=== PATIENT | female | born 1950 | race Caucasian/White ===

== ENCOUNTER → 2016-07-01 | Outpatient (CLI) | payer MEDICARE, BC ==
[~2016-07-01] MED LIST: CELE200C PO; CHOL2000 PO; GABA300C PO; OXYC-281 PO; PANT40TA4 PO; RIVA10TA PO
--- NOTE | 2016-07-01 15:59 | PN ---
Date/Time of Note Date/Time of Note DATE: 07/01/16 TIME: 15:48 Outpatient Progress Note Chief Complaint Status post bilateral knee replacement on 07/12/2015. HPI 65-year-old female presents today for follow-up status post bilateral knee replacement on 07/12/2015. Patient continues to do well but states that the left has improved more than the right. Patient continues to experience some discomfort on the right as well as increased crepitus style sound. Denies any falls. Denies any weakness in the left leg but experiences some weakness on the right, mainly with descending stairs. Patient is active in regards to stationary bicycle and elliptical machine in the gym. Patient is walking independently. Patient is also had physical therapy which has improved function. No radiating symptoms down the leg. Denies any falls. Denies any complaints to the left knee. Takes fdel-evg-ateprlg anti-inflammatories as needed. Patient also has complaints of right hip pain local to the groin. Patient has had previous greater trochanteric bursitis and states that this pain is more to the groin as opposed to the lateral hip. Groin pain does not limit function but has been present over the past couple of months. Review of Systems Const: No Fever, no chills, no Fatigue, normal appetite, no diaphoresis. Resp: No SOB, no wheezing, no chest pain. CV: No chest pain, no palpitaions, no SANTANA. Physical Exam Blood pressure is 133/77, temperature is 98.8, pulse of 85, respiratory rate is 13, height is 5 feet, weight is 180 pounds. General Appearance: well-developed, well-nourished, in no acute distress. Morbidly obese. Right knee: Well-healed surgical scarring. With light palpation over the anterior knee and with flexion there is noted crepitus. Patient is able to fully extend the knee and flexion up to 115. No pain with range of motion. Mild tenderness to palpation directly over the patella region. 5/5 strength on resistance. Left knee: Well-healed surgical scarring over the left knee. Normal sensory examination to light touch. Patient is able to fully extend the left knee and actively flex up to 125-130. No pain with range of motion. No tenderness to palpation. 5/5 strength on resistance. Normal flexion and extension of the right hip. No tenderness to palpation over the greater trochanteric region. When patient flexes at the hip she does have discomfort local to the groin. Imaging X-ray of the bilateral knees performed on 07/01/2016 showing all components appearing well aligned, attached and integrated to the bone. No signs of any lucency between metal and bone. X-ray of the pelvis on 07/01/2016 showing mild osteoarthritic changes at the right hip. Preserved joint space. No signs of any acute injury to the bilateral hip. Allergies Coded Allergies: hydrocodone (Verified Allergy, Severe, RASH, 09/06/15) Family Hx Patient History: Cardiac disorder 33 FATHER FHx: lung cancer 32 MOTHER Assessment/Plan * Continue with therapy such as stationary bicycle and elliptical. Aqua therapy also recommended. * Anti-inflammatories as needed for pain complaints. Ice modalities also recommended. Continued at home therapy with range of motion as well as scarring may continue to improve. Patient was made aware by Dr. Bowie at the time of surgery one year ago that it may take an extended amount of time in regards to rehabilitation as she did perform bilateral knee replacement. * Six-month extension for handicap placard provided today. * Follow-up as needed to the bilateral knees. Patient made aware that if right hip pain continues to follow up in the next couple of weeks with Dr. Bowie as possible injection to the hip may be recommended versus alternative therapy. Medications Home Meds Reported Medications Celecoxib* (Celebrex*) 200 Mg Capsule, 200 MG PO BID, CAP 09/06/15 Rivaroxaban* (Xarelto*) 10 Mg Tablet, 10 MG PO DAILY, TAB 09/06/15 Gabapentin* (Neurontin*) 300 Mg Capsule, 300 MG PO BID, #60 CAP 09/06/15 Oxycodone Hcl-Acetaminophen* (Percocet*) 5-325 Mg Tablet, 1 TAB PO Q4H Y for PAIN, TAB 09/06/15 Pantoprazole (Protonix) 40 Mg Tabec, 40 MG PO DAILY, TAB 02/28/15 Cholecalciferol* (Vitamin D3*) 2,000 Unit Cap, 2000 UNIT PO DAILY, CAP 02/28/15 PATRICK TIJERINA PA-C July 01, 2016 15:59
--- NOTE | 2016-07-01 16:00 | RADRPT ---
PROCEDURE: XR Knees. CLINICAL INDICATION: Bilateral knee pain. TECHNIQUE: Total of six views. Frontal, oblique, and lateral views of both knees. COMPARISON: 11/27/2015. FINDINGS: There are bilateral total constrained knee arthroplasties. These appears satisfactory with no fract ure, dislocation, or loosening. There is no joint effusion. The soft tissues are unremarkable. Th ere is no lytic lesion. There is diffuse osteopenia. IMPRESSION: 1. Satisfactory postoperative appearance of both knees. 2. Diffuse osteopenia. RPTAT: QQ .Sanket Lai MD, MD Date Time Electronically viewed and signed by .Sanket Lai MD, MD on 07/01/2016 16:00 .R/
--- NOTE | 2016-07-01 16:01 | RADRPT ---
PROCEDURE: XR Right hip and pelvis. CLINICAL INDICATION: Right hip pain. Pelvic pain. TECHNIQUE: Two views. Frontal pelvis and lateral right hip. COMPARISON: 02/27/2015. FINDINGS: There is no fracture or dislocation. The soft tissues are normal. There is diffuse osteopenia. There are mild degenerative changes with osteophytes noted arising from both hip joint margins. The articular surfaces are intact There is no lytic or blastic lesion. The upper pelvis is not completely included on the image. IMPRESSION: 1. Diffuse osteopenia. 2. Mild degenerative changes of both hips. RPTAT: QQ .Sanket Lai MD, MD Date Time Electronically viewed and signed by .Sanket Lai MD, on 07/01/2016 16:01 .R/
== END | disposition home or self-care (01) ==
LOC: HKI 13:40
DX: Z47.89 Encounter for other orthopedic aftercare (principal); Z96.653 Presence of artificial knee joint, bilateral
CPT/HCPCS: 73502

== ENCOUNTER → 2016-11-27 | Outpatient (CLI) | payer MEDICARE, BC ==
--- NOTE | 2016-11-27 17:11 | RADRPT ---
PROCEDURE: XR Knees. CLINICAL INDICATION: Bilateral knee pain. TECHNIQUE: Total of six views. Frontal, oblique, and lateral views of both knees. COMPARISON: 07/01/2016. FINDINGS: There is no fracture or dislocation. There is a small right knee joint effusion. There is no left knee joint effusion. There are bilateral total knee constrained arthroplasties. These appear satisfactory. There is diffuse osteopenia. There is no lytic or blastic lesion. IMPRESSION: 1. Satisfactory postoperative appearance of both knees. 2. Small right knee joint effusion. 3. Diffuse osteopenia. RPTAT: QQ .Sanket Lai MD, MD Date Time Electronically viewed and signed by .Sanket Lai MD, on 11/27/2016 17:11 .R/
--- NOTE | 2016-11-27 17:12 | RADRPT ---
PROCEDURE: XR Right Tibia and Fibula. CLINICAL INDICATION: Right lower leg pain. TECHNIQUE: Two views. Frontal and lateral. COMPARISON: No prior studies are available for comparison. FINDINGS: There is right knee total constrained arthroplasty which appears satisfactory. There is a small right knee joint effusion. There is no fracture or dislocation. There is diffuse osteopenia. There is no lytic or blastic lesion. The soft tissues are otherwise normal. IMPRESSION: 1. Satisfactory postoperative appearance of the right knee. 2. Diffuse osteopenia. 3. Otherwise unremarkable images of the right tibia and fibula. RPTAT: QQ .Sanket Lai MD, Date Time Electronically viewed and signed by .Sanket Lai MD, on 11/27/2016 17:12 .R/
--- NOTE | 2016-11-28 09:22 | HKNOTE ---
DATE OF SERVICE: 11/27/2016 MAIN COMPLAINT: Pain in the right "knee." HISTORY OF MAIN COMPLAINT: Kourtney underwent bilateral knee replacements on 07/13/2005. She made a n excellent recovery. When she was seen for followup on 09/11/2015 the knees are doing extremely we ll. The range of motion in the right knee was 0 to 110 degrees and in the left knee 0 to 105 degree s. She was very pleased with the result for a few months after surgery and then suddenly she started to lose motion in the right knee, unexplained reasons. She had no pain in the knee for several months and then she started developing pain in the right knee. Left knee retained its range of motion and she has not had problems with the left knee. She is very pleased with the results of the left knee replacement. The pain is not "actually in the knee." Pain starts at the tibial tubercle and radiates down from t he tubercle to the ankle. There is no numbness or tingling in the leg. There is no radiation furth er up the leg. She does not have any back pain. She had a laminectomy 10 years ago at the L4-L5 le dayday. PHYSICAL EXAMINATION: GENERAL: A fit looking 66-year-old female. VITAL SIGNS: Height 5 feet. Weight 180 pounds. Blood pressure 135/85, temperature 98.4. RIGHT KNEE: Extension is full. Flexion is to 90 degrees. Pain on attempting further flexion. No external sign of infection or inflammation. There is tenderness along the entire anterior region of the tibia from the tibial tubercle to the ankle. Note that there is no loss of skin sensation or n umbness or tingling in the same distribution. There is marked tenderness over the pes bursa of the r ight knee. NEUROLOGIC: Lower extremities is normal with some symmetrical deep tendon knee and ankle reflexes. Straight leg raising test is negative bilaterally at 80 degrees. IMAGING: Plain x-rays of the right knee obtained at the last visit (3 views) were reviewed. These show all components to be well-aligned and well-attached to the bone. No abnormalities are visible. DIAGNOSIS: The patient's situation is strange. It is most unusual for a knee to lose motion after having had virtually full range of motion after knee replacement surgery. The pain distribution is unusual. She does not have any actual pain in the knee, but pain along the tibial borders. She is afebrile. She is quite disabled. Because she is not able to get and out of a car very easily, she has to twist her way in and out. (She requested a refill on her handicap parking). Note that at her last visit, she had pes bursitis of the right knee and I injected the pes bursa are a. She states that "this was extremely painful and did not give me any relief." The patient declines to have any further injections of cortisone into the pes bursa. MANAGEMENT: 1. The patient was given Neurontin 100 mg p.o. t.i.d. 2. She is being sent for physical therapy (She requested the treatment. She had a physical therapi st who has a whole "concoction" of a variety of treatments which she swears will give Kourtney zelaya. Note: On a personal level that I do not believe that would be the case, but the patient is i nsistent on it. 3. Being sent for an MRI scan of the lumbar spine. 4. Technetium bone scan. Patient will be seen again in a weeks' time for reevaluation. Dictated By: JOHNATHON HERNANDEZ/ARIELLA Conf#: [id number] DID#: [id number]
== END | disposition home or self-care (01) ==
LOC: HKI 10:42
DX: M25.561 Pain in right knee (principal)
CPT/HCPCS: 73562; 73590; G0463

== ENCOUNTER → 2016-12-19 | Outpatient (CLI) | payer MEDICARE, BC ==
--- NOTE | 2016-12-19 16:20 | RADRPT ---
PROCEDURE: Three-phase bone scan study CLINICAL INDICATION: 66 -year-old patient with bilateral knee replacement, complaining of bilatera l knee pain. TECHNIQUE: Following the intravenous injection of 23.2 mCi of Tc-99m MDP, a three-phase bone scan study of the knees bilaterally was obtained. In addition, whole body anterior and posterior planar i mages were obtained along with spot views of the head, neck and chest. COMPARISON: No prior bone scan studies. X-ray of the knees bilaterally dated November 27, 2016. FINDINGS: Blood flow phase of the study demonstrates asymmetrically increased activity surrounding the right k nee joint with an extension along the visualized proximal portion of the right tibia as compared to the left. Blood pooling images reveal asymmetrically increased blood pooling activity surrounding the right kn ee joint extending along the length of the right tibia. Delayed images of both knees demonstrate evidence of a bilateral knee replacement with areas of inte nsely increased activity noted in the distal aspect of the right knee as compared to the left. Mildly increased activity is seen surrounding the left knee prosthesis. Whole body anterior and posterior planar images demonstrate mildly nonhomogeneous distribution of ac tivity throughout the spine, which favor degenerative process. No other areas of increased activity are identified in the visualized skeletal system. There is no evidence of mass abnormality of the kidneys or obstructive uropathy. IMPRESSION: 1. Evidence of the right knee replacement with asymmetrically increased blood flow and blood poolin g activity surrounding the right knee joint with an extension along the length of the right tibia an d areas of increased tracer activity on the delayed images in the distal aspect of the right knee blaire int. Infectious process should be considered in the differential diagnosis. 2. Evidence of a left knee replacement with likely postsurgical changes. 3. Likely mild degenerative changes of the spine. 4. No other abnormal areas of increased uptake . RPTAT: HH .Clotilde Neumann MD, MD Date Time Electronically viewed and signed by .Clotilde Neumann MD, on 12/19/2016 16:20 .L/
== END | disposition home or self-care (01) ==
LOC: NUC 09:39
DX: C41.9 Malignant neoplasm of bone and articular cartilage, unspecified (principal); T84.84XA Pain due to internal orthopedic prosthetic devices, implants and grafts, initial encounter; Y84.8 Other medical procedures as the cause of abnormal reaction of the patient, or of later complication, without mention of misadventure at the time of the procedure
CPT/HCPCS: 78306; 78315; A9503

== ENCOUNTER → 2016-12-23 | Outpatient (CLI) | payer MEDICARE, BC ==
--- NOTE | 2016-12-24 04:51 | HKNOTE ---
DATE OF SERVICE: Patient comes in with her . She comes in with previous reports for review, and a bone scan f or review. She continues to have pain in the knee. The remarkable thing is that the pain still extends from th e tibial tubercle to the ankle. There is no pain anywhere around the knee itself. She states it fe els like someone is hitting me with a hammer. She gets pain /. Pain is worse at night. Pain is very intense on getting up from a sitting to standing position. Currently in the office, today, th e pain is "a 1 or a 2." At times, the pain at night gets to a "10." When she gets the severe pain, she has to "stop everything." She has to do this several times a day. The pain subsides after she has been walking a few steps. Very occasionally she has no pain at all. When she is driving, she has no pain (patient is cautioned not to drive with these problems with her right leg and if she jhaveri s drive and gets into an accident, she is "on her own.") She takes Aleve. She is "ALLERGIC TO ALL PAIN PILLS." The knee feels very unstable. One time, rec ently, she nearly fell and her had to "grab her." Note that she never did get the spine MRI that I recommended. PHYSICAL EXAMINATION: VITAL SIGNS: Height 5 feet, weight 180 pounds. Blood pressure 145/75, temperature 98.0. RIGHT KNEE: There is no sign of infection or inflammation. DIAGNOSTIC DATA: Labwork obtained on 09/15/2016 shows increased urea nitrogen and BUN and creatinin e ratio. She states "I have had that for a long time." TSH is low. Urine culture shows multiple organisms commonly found on external and internal genitali a, considered to be "colonizers." Technetium bone scan obtained on 12/19/[address] Clotilde Neumann as showing "evidence of ri ght knee replacement with asymmetrically increased blood flow and blood pooling activity surrounding the right knee joint with an extension along the length of the right tibia and areas of increased t racer activity on delayed images in the distal aspect of the right knee joint." Infectious process should be considered in the differential diagnosis. DISCUSSION: I spent considerable time with the patient and discussing that our main goals a re to rule out infection or loosening of the implant. Her pain is bizarre in that it is along the anterior tibial spine from the tibial tubercle to the an kle. There is no pain in the actual knee, even on putting it through a range of motion. The bone scan seems to indicate that there may be pathology going on in the right knee. MANAGEMENT: Under sterile conditions, the right knee was aspirated of 20 mL of clear yellow fluid. It is being sent for cell count, culture and sensitivity. She is being sent for CBC, sed rate, C-r eactive protein. A MARS CAT scan of the right knee will also be obtained and she will be seen by me again in a week's time for reevaluation. Note that she is currently taking antibiotics for dental work, so I do not have to give her extra antibiotics to cover the aspiration of the knee. Dictated By: JOHNATHON HERNANDEZ/ARIELLA Conf#: [id number] DID#: [id number]
== END | disposition home or self-care (01) ==
LOC: HKI 09:57
DX: M25.561 Pain in right knee (principal)
CPT/HCPCS: 20610; G0463

== ENCOUNTER → 2016-12-26 | Outpatient (CLI) | payer MEDICARE, BC ==
--- NOTE | 2016-12-27 06:35 | HKNOTE ---
DATE OF SERVICE: 12/26/2016 CHIEF COMPLAINT: Right knee pain. HISTORY OF PRESENT ILLNESS: Kourtney is a 66-year-old lady who is here for evaluation of right knee pain. The patient had bilateral knee replacement about 1-1/2 years ago. She states that the left k necorazon is doing well with only minimal discomfort at times. The right knee, on the other hand, has bec ome progressively painful over the last 8 to 9 months. The last 3 months have been difficult to juan jose r weight on the right side. There is no history of fever or chills. There is no history of trauma. The patient reports swelling with decreasing range of motion on the right side. She has been work ed up for this pain and recently had lab work, knee aspiration, and a 3-phase bone scan. She is her e for further management and appears to be quite anxious. PAST HISTORY: Significant for hypothyroidism, GI reflux, and hypertension. MEDICATIONS: Include: 1. [place] thyroid 120 mg. 2. Pantoprazole. ALLERGIES: SHE IS ALLERGIC TO: 1. VICODIN. 2. NORCO. SOCIAL HISTORY: She denies smoking or alcohol use. FAMILY HISTORY: Positive for heart disease and cancer. REVIEW OF SYSTEMS: Negative for chest pain, shortness of breath, nausea, vomiting, diarrhea. PHYSICAL EXAMINATION: GENERAL: Shows a pleasant female. She is anxious, awake, alert, and oriented. MUSCULOSKELETAL: Walks with an antalgic gait on the right side. The right knee has significant swe lling. Incision appears to be well healed. Range of motion is 5 to 80 degrees. There is significa nt tenderness on the medial and lateral aspect of the knee. Distal circulation is intact. There is swelling of the ankle and leg as well. There is tenderness along the anterior border of the tibia. Left knee incision is well-healed with good range of motion and no tenderness. IMAGING: X-rays of the knees were reviewed and show erosions of the proximal tibia around the tibia l component on the right side. The left knee appears to be well fixed. A 3-phase bone scan shows i ncreased uptake around the right knee, especially in the tibia, consistent with infection. LABORATORY DATA: A recent ESR and C-reactive protein appear to be elevated. Cultures on the knee a spiration are pending. ASSESSMENT AND PLAN: A 66-year-old lady with right knee pain after total knee replacement yea rs ago. The pain appears to be related to postoperative infection. She is going to need a 2-stage revision on her right knee. The risks and benefits of the procedure were discussed in detail. The procedure, implant materials, and surgical techniques were discussed as well. All questions were an swered to her satisfaction. She will be scheduled for surgery as soon as possible. An infectious d isease consult will be required and the patient will need a central line for 6 weeks of IV antibioti cs. Dictated By: HO MATA MD UB/NTS Conf#: [id number] DID#: [id number] CC: HO MATA MD;*EndCC*
== END | disposition home or self-care (01) ==
LOC: HKI 13:50
PROVIDERS: ATTEND Orthopaedic Surgery
DX: M25.561 Pain in right knee (principal); I10 Essential (primary) hypertension; E03.9 Hypothyroidism, unspecified; Z96.651 Presence of right artificial knee joint; Z82.49 Family history of ischemic heart disease and other diseases of the circulatory system; Z80.9 Family history of malignant neoplasm, unspecified
CPT/HCPCS: G0463

== ENCOUNTER → 2017-01-09 | Outpatient (CLI) | payer MEDICARE, BC ==
--- NOTE | 2017-01-09 19:20 | HKNOTE ---
DATE OF SERVICE: 01/09/2017 Kourtney is here for her preoperative visit related to right total knee revision. The patient is 66 years old and has loosening of her right knee components, and labs are suspicious for infection. Th e patient is scheduled for 2-stage revision of her right total knee replacement, the first stage monse l be done next week. The plan involves removal of implants and placement of an antibiotic spacer. Risks and benefits of the procedure, including but not limited to, bleeding, infection, scarring sti ffness, injury to nerves and vessels, chronic pain, implant failure, fracture, dislocation, DVT, PE, and need for further surgery were discussed with the patient in detail. All questions were answere d to the patient's satisfaction. Implant materials and surgical techniques were discussed. Postope rative recovery was discussed as well. The patient is scheduled for surgery next week and will foll ow up for her postoperative visit in about 2 weeks. Dictated By: HO GALLARDO/ARIELLA Conf#: [id number] DID#: [id number]
== END | disposition home or self-care (01) ==
LOC: HKI 13:04
PROVIDERS: ATTEND Orthopaedic Surgery
DX: Z01.818 Encounter for other preprocedural examination (principal)

== ENCOUNTER 2017-01-13 12:18 | Inpatient (IN) | payer MEDICARE, BC ==
[~2017-01-13] VITALS: Ht 152.4 cm; Wt 92.5 kg
[2017-01-13] VITALS (26 sets, daily range): BP systolic 109–188; BP diastolic 58–103; PULSE 82–102; RESP 10–23; Ht 152.4 cm; Wt 92.5 kg
[2017-01-13] MEDS ORDERED: THYR120T PO (13:04)
[2017-01-13] MEDS ORDERED: OXYC-209 PO (13:04)
[2017-01-13] MEDS ORDERED: CELE100C PO (13:05)
[2017-01-13] MEDS ORDERED: CYCL-319 PO (13:07)
[2017-01-13] MEDS ORDERED: PHEN37.53 PO (13:07)
[2017-01-13] MEDS ORDERED: DEXAMETHASONE 4 MG/ML 1 ML INJ IV ONE (13:30)
[2017-01-13] MEDS ORDERED: ONDANSETRON 4 MG INJ IV ONE (13:30)
[2017-01-13] MEDS ORDERED: SOD CHLORIDE 0.9% IVPB ONE ×4 (13:30)
[2017-01-13] MEDS ORDERED: TRANEXAMIC ACID IVPB ONE ×4 (13:30)
[2017-01-13] MEDS ORDERED: CELECOXIB 200 MG CAP PO ONE (13:30)
[2017-01-13] MEDS ORDERED: LACTATED RINGER'S 1,000 ML IV* SCH (13:30)
[2017-01-13] MEDS ORDERED: ACETAMINOPHEN 1000MG/100ML IV 100 ML IVPB ONE (13:30)
[2017-01-13] MEDS ORDERED: CEFAZOLIN 2 GM/50 ML (PMX) 50 ML IVPB ONE (13:30)
[2017-01-13] MEDS: LANSOPRAZOLE 30 MG CAP PO ONE ×2 (13:57→14:11)
[2017-01-13] MEDS: [UNRECOGNIZED DRUG - OTHER] INJ SCH ×10 (15:00→17:59)
[2017-01-13] MEDS: KETOROLAC INJ SCH ×10 (15:00→17:59)
[2017-01-13] MEDS: CLONIDINE INJ SCH ×10 (15:00→17:59)
[2017-01-13] MEDS: ROPIVACAINE 0.2% INJ SCH ×10 (15:00→17:59)
[2017-01-13] MEDS: EPINEPHRINE INJ SCH ×10 (15:00→17:59)
[2017-01-13 15:16] LABS: INR 0.92; PROTIME 12.4 Sec (12.2-14.2)
[2017-01-13 15:17] LABS: PARTIAL THROMBOPLASTIN TIME 28.8 Sec (25.0-35.0)
--- NOTE | 2017-01-13 15:31 | HPN ---
Date/Time of Note Date/Time of Note DATE: 01/13/17 TIME: 15:31 Interval H&P Admission Note Pt. seen H&P reviewed: No system changes HO MATA Jan 13, 2017 15:31
[2017-01-13 15:36] LABS: ALBUMIN 3.9 g/dl (3.3-4.9); ALBUMIN/GLOBULIN RATIO 1.3; BILIRUBIN,INDIRECT 0.1 mg/dl (0-1.1); BILIRUBIN,TOTAL 0.1 mg/dl (0.2-1.3); TOTAL PROTEIN 6.9 g/dl (6.1-8.1)
[2017-01-13 15:37] LABS: CALCIUM 9.6 mg/dl (8.4-10.2); CREATININE 0.68 mg/dl (0.44-1.00); POTASSIUM 4.1 mmol/L (3.5-5.1)
[2017-01-13] MEDS ORDERED: POLYMYXIN/BACITRACIN 1L IRRIG ONE (16:14)
[2017-01-13] MEDS ORDERED: FENTAnyl 50 MCG/ML VIAL ONE ×3 (16:45→18:41)
[2017-01-13] MEDS ORDERED: SUCCINYLCHOLINE CHLORIDE 100 MG/5 ML SYG IV ONE (17:04)
[2017-01-13] MEDS ORDERED: SUGAMMADEX SODIUM 200 MG/2 ML VIAL IV ONE (17:04)
[2017-01-13] MEDS ORDERED: ROCURONIUM 50 MG INJ ONE (17:04)
[2017-01-13] MEDS ORDERED: PROPOFOL 20 ML ONE (17:04)
[2017-01-13] MEDS ORDERED: LABETALOL HCL 20MG INJ ONE (17:04)
[2017-01-13] MEDS ORDERED: LIDOCAINE 2% (SDV) 5 ML INJ ONE (17:04)
[2017-01-13] MEDS ORDERED: PHENYLephrine (100 MCG/ML) 5ML SYG ONE (17:22)
[2017-01-13] MEDS ORDERED: VANCOMYCIN 1 GM INJ ONE (17:29)
[2017-01-13] MEDS ORDERED: TOBRAMYCIN 1.2 GM POWDER ONE (17:30)
[2017-01-13] MEDS ORDERED: FENTAnyl 50 MCG/ML VIAL IV PRN (18:00)
[2017-01-13] MEDS ORDERED: LABETALOL HCL 20MG INJ IV PRN (18:00)
[2017-01-13] MEDS ORDERED: METOCLOPRAMIDE 10 MG INJ IV PRN (18:00)
[2017-01-13] MEDS ORDERED: MEPERIDINE 25 MG INJ IV PRN (18:00)
[2017-01-13] MEDS ORDERED: DIPHENHYDRAMINE 50 MG INJ IV PRN (18:00)
[2017-01-13] MEDS ORDERED: ONDANSETRON 4 MG INJ IV PRN (18:00)
[2017-01-13] MEDS ORDERED: hydrALAzine 20 MG INJ IV PRN (18:00)
[2017-01-13] MEDS: SOD CHLORIDE 0.9% 1,000 ML IV SCH (19:50)
--- NOTE | 2017-01-13 19:50 | PDOCDIS ---
Discharge Instructions DIAGNOSIS Discharge Diagnosis Status post stage I right total knee revision. CONDITION Patient Condition: Good HOME CARE INSTRUCTIONS: Diet Instructions: Regular ACTIVITY: Activity Restrictions: Slowly Increase Activity Rest between Activity Avoid heavy lifting No Sexual Activity Do not Drive Do not operate Machinery Do not operate Power Tool Avoid Heavy Housework Keep Limb Elevated (Apply 2-3 pillows under the foot/ankle only while at rest. May apply cold therapy over surgical dressing.) Weight Bearing (Weight-bear as tolerated with assisted ambulation using front wheeled walker) Bathing Restrictions: Shower (Keep Mepilex dressing on until postoperative appointment. No water to the surgical wound. Keep area clean and dry.) FOLLOW UP/APPOINTMENTS Follow-up Plan Follow-up on postoperative appointment provided to you at your preoperative visit. PATRICK TIJERINA PA-C Jan 13, 2017 19:50
--- NOTE | 2017-01-13 19:54 | SIPON ---
Date/Time of Note Date/Time of Note DATE: 01/13/17 TIME: 19:52 Operative Report Preoperative Diagnosis infected right TKA Postoperative Diagnosis same Operation/Procedure Performed stage I revision of right TKA Surgeon see signature line admissions assistant none Second assist: PATRICK TIJERINA PA-C Anesthesia: spinal Estimated blood loss: 250 - 300 ml's Transfusion Required none Specimen cultures Grafts/Implants depuy 3 femur, 4 tibia, 12.5 poly, 4 gms vancomycin, 4.8 gms tobramycin Complications none HO MATA Jan 13, 2017 19:54
[2017-01-13] MEDS ORDERED: SENNA/DOCUSATE NA (8.6MG/50MG) TAB PO PRN (20:00)
[2017-01-13] MEDS ORDERED: MAGNESIUM HYDROXIDE 30ML CUP PO PRN (20:00)
[2017-01-13] MEDS ORDERED: BETHANECHOL 25 MG TAB PO PRN (20:00)
[2017-01-13] MEDS ORDERED: oxyCODONE 5 MG TAB PO PRN (20:00)
[2017-01-13] MEDS ORDERED: NA PHOSPHATE/BIPHOS 133 ML ENEMA PR PRN (20:00)
[2017-01-13] MEDS ORDERED: ZOLPIDEM 5 MG TAB PO PRN (20:00)
[2017-01-13] MEDS ORDERED: DOCUSATE SODIUM 100 MG CAP PO ONE (20:00)
[2017-01-13] MEDS ORDERED: BISACODYL 10 MG SUPP PR PRN (20:00)
[2017-01-13] MEDS ORDERED: NALOXONE (0.4 MG/ML) INJ IV PRN (20:00)
[2017-01-13] MEDS ORDERED: ASPIRIN (EC) 325 MG TAB PO ONE (20:00)
[2017-01-13] MEDS ORDERED: HYDROmorphONE (0.2 MG/ML) 10ML SYG IV ONE (20:21)
[2017-01-13] MEDS: FENTAnyl 50 MCG/ML VIAL IV PRN ×4 (20:23→21:45)
[2017-01-13] MEDS: ONDANSETRON 4 MG INJ IV SCH (20:30)
[2017-01-13] MEDS: CEFAZOLIN 1 GM/50 ML (PMX) 50 ML IVPB SCH (20:36)
[2017-01-13] MEDS: oxyCODONE 5 MG TAB PO PRN (23:06)
[2017-01-14 00:15] VITALS: BP 135/68; PULSE 90; RESP 16
[2017-01-14] MEDS: KETOROLAC 15 MG INJ IV PRN (01:07)
[2017-01-14 01:15] VITALS: BP 142/67; PULSE 88; RESP 16
[2017-01-14] MEDS: ONDANSETRON 4 MG INJ IV SCH ×3 (01:25→14:00)
[2017-01-14] MEDS: SOD CHLORIDE 0.9% 1,000 ML IV SCH ×2 (01:31→20:50)
[2017-01-14 02:15] VITALS: BP 126/58; PULSE 88; RESP 16
[2017-01-14] MEDS: CEFAZOLIN 1 GM/50 ML (PMX) 50 ML IVPB SCH (03:47)
[2017-01-14 06:07] LABS: BASOPHILS % 0.1 % (0.0-2.0); HEMATOCRIT 28.8 % (37.0-47.0); HEMOGLOBIN 9.6 g/dl (12.0-16.0); LYMPHOCYTES # 1.3 10^3/ul (0.8-2.9); LYMPHOCYTES % 11.8 % (15.0-51.0); MEAN CORPUSCULAR HEMOGLOBIN 29.8 pg (29.0-33.0); MEAN CORPUSCULAR HGB CONC 33.3 g/dl (32.0-37.0); MEAN CORPUSCULAR VOLUME 89.4 fl (82.0-101.0); MEAN PLATELET VOLUME 12.3 fl (7.4-10.4); MONOCYTE # 0.7 10^3/ul (0.3-0.9); NEUTROPHIL # 9.3 10^3/ul (1.6-7.5); NEUTROPHILS % 81.6 % (39.0-77.0); PLATELET COUNT 145 10^3/UL (140-415); RED BLOOD COUNT 3.22 10^6/ul (4.20-5.40); RED CELL DISTRIBUTION WIDTH 12.9 % (11.5-14.5); WHITE BLOOD COUNT 11.4 10^3/ul (4.8-10.8)
[2017-01-14 07:10] LABS: CALCIUM 8.5 mg/dl (8.4-10.2); CREATININE 0.56 mg/dl (0.44-1.00); POTASSIUM 4.2 mmol/L (3.5-5.1)
[2017-01-14 07:53] VITALS: BP 123/87; RESP 18
[2017-01-14] MEDS ORDERED: VANCOMYCIN IV PER PHARMACY XX SCH (08:00)
--- NOTE | 2017-01-14 08:11 | CONS ---
Date/Time of Note Date/Time of Note DATE: 01/14/17 TIME: 08:00 Assessment/Plan Assessment/Plan Chief Complaint/Hosp Course 1) S/p removal of hardware for presumed infection of the R knee she had a prior aspiration of the joint fluid which did not grow any organisms She is reported to have elevated ESR I have contacted the PA, Quirino Galloway to get results of the knee fluid cell count will start IV vanco with po cipro and anticipate a 6 week course followed by po antibiotics for an extended period she will be on probiotics while on antibiotics Case management referral has been made for home IV vanco pt already has a port placed in anticipation for home IV antibiotics. I will order ESR and CRP for tomorrow to get a baseline reading and follow on a weekly basis. 2) hypothyroidism 3) Problems: Consultation Date/Type/Reason Admit Date/Time Jan 13, 2017 at 12:18 Date of Consultation: Jan 14, 2017 Type of Consultation: ID Hx of Present Illness pt received a robert TKR in june of 2015 She initially did well, she would get some swelling of both knees but it would resolve with ice. She noticed the R knee seemed to swell up more than the L knee. This past may she developed pain from the knee area down to the ankle, that has progressed. She had more swelling of the R knee and she also noticed increase in heat but no redness. She does not recall any open wounds, intervening illness prior to this time. She had not teeth worked on before her pain began. She denies N, V, D. No SOB, cough, sore throat. Past Medical History DVT, hypothyroidism Past Surgical History IVC filter, laminectomy, foot surgery Past Surgical Hx: other Social History Smoking Status: Never smoker Exam/Review of Systems Vital Signs Vitals Vital Signs Date Time Temp Pulse Resp B/P Pulse Ox O2 Delivery O2 Flow Rate FiO2 01/14/17 07:53 97.9 85 18 123/87 96 01/14/17 02:15 Nasal Cannula 01/13/17 22:01 2.0 Intake and Output 01/13/17 01/13/17 01/14/17 14:59 22:59 06:59 Intake Total 325 ml 890 ml Output Total 100 ml 750 ml Balance 225 ml 140 ml Exam Constitutional: alert, oriented Head: normocephalic Eyes: nl conjunctiva, nl sclera ENMT: mucosa pink and moist Respiratory: clear to auscultation Cardiovascular: regular rate and rhythm Gastrointestinal: non-tender, soft Extremities: other (R knee is wrapped) Lymph: nl lymph nodes Results Result Diagram: 01/14/17 0434 01/14/17 0500 Results 24 hrs Laboratory Tests Test 01/13/17 13:30 01/14/17 04:34 01/14/17 05:00 Prothrombin Time 12.4 Prothrombin Time Ratio 1.0 INR International Normalized Ratio 0.92 Activated Partial Thromboplast Time 28.8 Sodium Level 138 138 Potassium Level 4.1 4.2 Chloride Level 101 104 Carbon Dioxide Level 28 29 Anion Gap 13 9 Blood Urea Nitrogen 22 H 14 Creatinine 0.68 0.56 Glucose Level 90 109 Calcium Level 9.6 8.5 Total Bilirubin 0.1 L Direct Bilirubin 0.00 Indirect Bilirubin 0.1 Aspartate Amino Transf (AST/SGOT) 26 Alanine Aminotransferase (ALT/SGPT) 39 Alkaline Phosphatase 87 Total Protein 6.9 Albumin 3.9 Globulin 3.00 Albumin/Globulin Ratio 1.30 White Blood Count 11.4 #H Red Blood Count 3.22 L Hemoglobin 9.6 L Hematocrit 28.8 L Mean Corpuscular Volume 89.4 Mean Corpuscular Hemoglobin 29.8 Mean Corpuscular Hemoglobin Concent 33.3 Red Cell Distribution Width 12.9 Platelet Count 145 Mean Platelet Volume 12.3 #H Neutrophils % 81.6 H Lymphocytes % 11.8 L Monocytes % 6.0 Eosinophils % 0.0 Basophils % 0.1 Nucleated Red Blood Cells % 0.0 Neutrophils # 9.3 H Lymphocytes # 1.3 Monocytes # 0.7 Eosinophils # 0.0 Basophils # 0.0 Nucleated Red Blood Cells # 0.0 Medications Medications Current Medications Sodium Chloride (NS) 1,000 ml @ 80 mls/hr [id number] IV Last administered on 01:31; Admin Dose 80 MLS/HR; Start 01/13/17 at 19:50 Oxycodone HCl (Roxicodone) 20 mg Q3H PRN PO PAIN LEVEL 8-10; Start 01/13/17 at 20:00 Oxycodone HCl (Roxicodone) 10 mg Q3H PRN PO PAIN LEVEL 4-7 Last administered on 01/13/17 23:06; Admin Dose 10 MG; Start 01/13/17 at 20:00 Oxycodone HCl (Roxicodone) 5 mg Q3H PRN PO PAIN LEVEL 1-3; Start 01/13/17 at 20:00 Zolpidem Tartrate (Ambien) 5 mg HS PRN PO INSOMNIA; Start 01/13/17 at 20:00 Ondansetron HCl 4 mg 4 mg Q6H IV Last administered on 01/13/17t 20:30; Admin Dose 4 MG; Start 01/13/17 at 20:00; Stop 01/14/17 at 14:01 Cefazolin Sodium (Ancef 1 Gm/50 ml (Pmx)) 50 ml @ 100 mls/hr Q8H IVPB Last administered on 01/14/17 03:47; Admin Dose 100 MLS/HR; Start 01/13/17 at 20: 00; Stop 01/14/17 at 12:29 Aspirin (Ecotrin) 325 mg DAILY PO ; Start 01/14/17 at 09:00 Celecoxib (Celebrex) 100 mg BID PO ; Start 01/14/17 at 09:00 Pantoprazole (Protonix Tab) 40 mg DAILY@06 PO ; Start 01/15/17 at 06:00 Docusate Sodium/ Ferrous Fumarate (Manda-Sequels) 1 tab BID PO ; Start at 09:00 Docusate Sodium (Colace) 200 mg BID PO ; Start 01/14/17 at 09:00; Stop at 08:59 Simethicone (Mylicon) 80 mg TID PRN PO DISTENSION/GAS/BLOATING; Start at 20:00 Senna/Docusate Sodium (Senokot-S) 2 tab BID PRN PO CONSTIPATION; Start at 20:00 Magnesium Hydroxide (Milk Of Mag) 30 ml HS PRN PO CONSTIPATION; Start at 20:00 Bisacodyl (Dulcolax Supp) 10 mg DAILY PRN [place] CONSTIPATION; Start 01/13/17 at 20:00 Sodium Biphosphate/ Sodium Phosphate (Fleet Enema) 133 ml DAILY PRN [place] CONSTIPATION; Start 01/13/17 at 20:00 Diphenhydramine HCl (Benadryl) 25 mg Q4H PRN IM ITCHING OR RASH; Start at 20:00 Ketorolac Tromethamine (Toradol) 15 mg Q6 PRN IV PAIN Last administered on t 01:07; Admin Dose 15 MG; Start 01/13/17 at 20:00; Stop 01/17/17 at 19: 59 Naloxone HCl (Narcan) 0.2 mg Q2M PRN IV DECREASED REPIRATORY RATE; Start at 20:00 Tramadol HCl (Ultram) 50 mg Q6H PRN PO PAIN; Start 01/13/17 at 20:00 Ciprofloxacin (Cipro) 500 mg BID@06,18 PO ; Start 01/14/17 at 18:00; Status UNV Lactobacillus Acidophilus (Florajen3 Capsule) 1 each BID PO ; Start 01/14/17 at 09:00; Status UNV ADARSH CAZARES MD Jan 14, 2017 08:11
[2017-01-14] MEDS: ASPIRIN (EC) 325 MG TAB PO SCH (08:44)
[2017-01-14] MEDS: FERROUS FUMARATE (SR) TAB PO SCH ×4 (08:44→22:07)
[2017-01-14] MEDS: DOCUSATE SODIUM 100 MG CAP PO SCH ×2 (08:44→22:07)
[2017-01-14] MEDS: oxyCODONE 5 MG TAB PO PRN ×4 (08:46→22:58)
[2017-01-14] MEDS ORDERED: VANCOMYCIN 1.75 GM in NS 500 ML IVPB SCH (10:00)
--- NOTE | 2017-01-14 11:57 | PN ---
Date/Time of Note Date/Time of Note DATE: 01/14/17 TIME: 11:56 Assessment/Plan VTE Prophylaxis VTE Prophylaxis Intervention: ambulation, SCD's, other (Aspirin 325 mg) Lines/Catheters IV Catheter Type (from Nrsg): Peripheral IV Cabrales in Place (from Nrsg): No Assessment/Plan Assessment/Plan -Pain Meds as needed -Dressing is clean and intact. -OOB with PT -ASA/SCDs for DVT Prophylaxis -Continue monitoring with Internal Medicine -Patient Stable Subjective 24 Hr Interval Summary 66-year-old female postop day 1 status post stage I right total knee arthroplasty revision with placement of antibiotic spacer. Patient denies any acute overnight events. Denies any pain while at rest now. Has yet to initiate physical therapy as this was a late surgery yesterday. We will be initiating physical therapy today. Denies any chest pain/tightness or shortness of breath. Denies any calf pain. Pain Control: well controlled Exam/Review of Systems Vital Signs Vitals Vital Signs Date Time Temp Pulse Resp B/P Pulse Ox O2 Delivery O2 Flow Rate FiO2 01/14/17 07:53 97.9 85 18 123/87 96 01/14/17 02:15 Nasal Cannula 01/13/17 22:01 2.0 Intake and Output 01/13/17 01/13/17 01/14/17 15:00 23:00 07:00 Intake Total 325 ml 890 ml Output Total 100 ml 750 ml Balance 225 ml 140 ml Exam Free Text/Dictation -No complications with dressing intact. -5/5 Tibialis Anterior, EHL Gastrocnemius/Soleus and Peroneals -Normal Sensation -Palpable DP/PT, Capillary Refill <2 secs -No Distal Edema -Negative Justa Sign/No calf pain -Toes Freely Movable Constitutional: alert, oriented, well developed Results Result Diagram: 01/14/17 0434 01/14/17 0500 PATRICK TIJERINA PA-C Jan 14, 2017 11:57
[2017-01-14] MEDS: CELECOXIB 100 MG CAP PO SCH ×3 (12:17→22:07)
[2017-01-14] MEDS: L ACIDOPHIL/B LACTIS/B LONGUM CAPSULE PO SCH ×2 (12:17→22:06)
--- NOTE | 2017-01-14 14:47 | CONS ---
Date/Time of Note Date/Time of Note DATE: 01/14/17 TIME: 14:31 Assessment/Plan Assessment/Plan Problems: (1) Hypothyroidism Status: Chronic Comment: Resume armour thyroid 120 mg/d (2) GERD (gastroesophageal reflux disease) Status: Chronic Comment: Resume PPI daily (3) Personal history of DVT (deep vein thrombosis) Status: Chronic Comment: Xarelto on hold. Has IVC filter. Cont. SCD's. Will follow (4) Infection of total right knee replacement Status: Acute Comment: S/p revision of R knee prosthesis. ID following and giving IV abx. Cultures pending. Will follow. (5) Aftercare following right knee joint replacement surgery Status: Acute Comment: Doing well POD#1. Cont. current care. Will monitor for any other medical issues should they arise. Will follow w/ you. Consultation Date/Type/Reason Admit Date/Time Jan 13, 2017 at 12:18 Date of Consultation: Jan 14, 2017 Type of Consultation: Medicine Reason for Consultation Medical Management Referring Provider: HO MATA Hx of Present Illness 66 y/o C F w/ h/o hypothyroidism s/p B TKA last year. In [facility] [place] 7 m. ago when she developed pain and swelling in R knee. Pain began to radiate down R tibia. Pt. w/ multiple return visits for pain. Had injection for bursitis. Not effective. Eventually pain so bad had bone scan showing inflammatory process c/w infection. Had port-a-cath placed and also new IVC filter and was admitted for revision of R knee prosthesis which was done yesterday. Will need 6 weeks IV abx. Constitutional: improved, no complaints Eyes: no complaints ENT: no complaints Respiratory: no complaints Cardiovascular: no complaints Gastrointestinal: no complaints Genitourinary: no complaints Musculoskeletal: bone/joint pain (aso has pain in L knee), swelling (R foot, L arm) Neurologic: no complaints Past Medical History Medical History: deep vein thrombosis, GERD, hypothyroid, other (OA B knees, hips, lumbar spine) Past Surgical History Past Surgical Hx: other (ANTONIO, lumbar lami, multiple knee arthroscopies for meniscal disease, B TKA 18 m. ago) Family History Significant Family History: heart disease (father), cancer (mother) Social History b. 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, , 2 children Alcohol Use: rarely Smoking Status: Never smoker Drug Use: none Exam/Review of Systems Vital Signs Vitals VS - Last 72 Hours, by Label Date Time Temp Pulse Resp B/P Pulse Ox O2 Delivery O2 Flow Rate FiO2 01/14/17 07:53 97.9 85 18 123/87 96 01/14/17 02:15 97.8 88 16 126/58 97 Nasal Cannula 01/14/17 01:15 88 16 142/67 98 Nasal Cannula 01/14/17 00:15 90 16 135/68 99 Nasal Cannula 01/13/17 23:45 93 16 135/63 98 Nasal Cannula 01/13/17 23:15 92 16 127/65 98 Room Air Nasal Cannula 01/13/17 23:00 87 16 121/58 95 Nasal Cannula 01/13/17 22:45 84 16 134/63 97 Room Air Nasal Cannula 01/13/17 22:30 97.7 87 16 119/67 96 Room Air Nasal Cannula 01/13/17 22:16 86 14 96 Nasal Cannula 01/13/17 22:01 86 23 122/64 96 Nasal Cannula 2.0 01/13/17 21:46 82 16 97 Nasal Cannula 2.0 01/13/17 21:31 98.6 82 14 112/65 98 Nasal Cannula 2.0 01/13/17 21:06 88 15 111/62 98 Nasal Cannula 2.0 01/13/17 21:01 86 14 111/62 95 Nasal Cannula 2.0 01/13/17 20:56 90 18 110/67 96 Nasal Cannula 2.0 01/13/17 20:51 92 13 127/66 96 Nasal Cannula 2.0 01/13/17 20:46 90 18 112/63 95 Nasal Cannula 2.0 01/13/17 20:41 90 10 118/61 98 Nasal Cannula 2.0 01/13/17 20:36 90 19 119/66 99 Nasal Cannula 2.0 01/13/17 20:31 88 19 112/60 98 Nasal Cannula 2.0 01/13/17 20:26 88 10 114/62 99 Nasal Cannula 2.0 01/13/17 20:21 90 12 115/63 99 Nasal Cannula 2.0 01/13/17 20:16 96 18 111/62 94 Nasal Cannula 2.0 01/13/17 20:11 96 15 111/60 99 Nasal Cannula 2.0 01/13/17 20:06 96 17 131/69 98 Mask 8.0 01/13/17 20:03 98.3 01/13/17 20:01 96 14 136/61 97 Mask 8.0 01/13/17 19:59 96 16 141/62 97 Mask 8.0 01/13/17 19:54 98.3 102 20 188/103 98 Mask 01/13/17 14:35 98.3 102 18 109/73 96 Room Air Vital Signs Date Time Temp Pulse Resp B/P Pulse Ox O2 Delivery O2 Flow Rate FiO2 01/14/17 07:53 97.9 85 18 123/87 96 01/14/17 02:15 Nasal Cannula 01/13/17 22:01 2.0 Intake and Output 01/13/17 01/13/17 01/14/17 15:00 23:00 07:00 Intake Total 325 ml 890 ml Output Total 100 ml 750 ml Balance 225 ml 140 ml Exam Constitutional: alert, obese, oriented Psych: nl mood/affect, no complaints Eyes: EOMI, PERRL, nl conjunctiva, nl lids, nl sclera ENMT: mucosa pink and moist, nl external ears & nose Neck: non-tender, supple, No bruits, No masses, No thyromegaly Respiratory: clear to auscultation, normal air movement Cardiovascular: nl pulses, regular rate and rhythm, No edema, No murmurs/extra sounds, No rub Gastrointestinal: bowel sounds, nl liver, spleen, non-tender, soft, No mass, No rebound or guarding Musculoskeletal: nl extremities to inspection Extremities: normal pulses, No clubbing, No cyanosis, No edema Neurological: [employer]ER II-XII intact, nl mental status, nl speech, nl strength Results Result Diagram: 01/14/17 0434 01/14/17 0500 Results 24 hrs Laboratory Tests Test 01/14/17 04:34 01/14/17 05:00 White Blood Count 11.4 #H Red Blood Count 3.22 L Hemoglobin 9.6 L Hematocrit 28.8 L Mean Corpuscular Volume 89.4 Mean Corpuscular Hemoglobin 29.8 Mean Corpuscular Hemoglobin Concent 33.3 Red Cell Distribution Width 12.9 Platelet Count 145 Mean Platelet Volume 12.3 #H Neutrophils % 81.6 H Lymphocytes % 11.8 L Monocytes % 6.0 Eosinophils % 0.0 Basophils % 0.1 Nucleated Red Blood Cells % 0.0 Neutrophils # 9.3 H Lymphocytes # 1.3 Monocytes # 0.7 Eosinophils # 0.0 Basophils # 0.0 Nucleated Red Blood Cells # 0.0 Sodium Level 138 Potassium Level 4.2 Chloride Level 104 Carbon Dioxide Level 29 Anion Gap 9 Blood Urea Nitrogen 14 Creatinine 0.56 Glucose Level 109 Calcium Level 8.5 Medications Medications Current Medications Sodium Chloride (NS) 1,000 ml @ 80 mls/hr [id number] IV Last administered on 01:31; Admin Dose 80 MLS/HR; Start 01/13/17 at 19:50 Oxycodone HCl (Roxicodone) 20 mg Q3H PRN PO PAIN LEVEL 8-10; Start 01/13/17 at 20:00 Oxycodone HCl (Roxicodone) 10 mg Q3H PRN PO PAIN LEVEL 4-7 Last administered on 01/14/17 12:17; Admin Dose 10 MG; Start 01/13/17 at 20:00 Oxycodone HCl (Roxicodone) 5 mg Q3H PRN PO PAIN LEVEL 1-3; Start 01/13/17 at 20:00 Zolpidem Tartrate (Ambien) 5 mg HS PRN PO INSOMNIA; Start 01/13/17 at 20:00 Aspirin (Ecotrin) 325 mg DAILY PO Last administered on 01/14/17 08:44; Admin Dose 325 MG; Start 01/14/17 at 09:00 Celecoxib (Celebrex) 100 mg BID PO Last administered on 01/14/17 12:17; Admin Dose 100 MG; Start 01/14/17 at 08:30 Pantoprazole (Protonix Tab) 40 mg DAILY@06 PO ; Start 01/15/17 at 06:00 Docusate Sodium/ Ferrous Fumarate (Manda-Sequels) 1 tab BID PO ; Start at 09:00 Docusate Sodium (Colace) 200 mg BID PO Last administered on 01/14/17 08:44; Admin Dose 200 MG; Start 01/14/17 at 09:00; Stop 01/17/17 at 08:59 Simethicone (Mylicon) 80 mg TID PRN PO DISTENSION/GAS/BLOATING; Start at 20:00 Senna/Docusate Sodium (Senokot-S) 2 tab BID PRN PO CONSTIPATION; Start at 20:00 Magnesium Hydroxide (Milk Of Mag) 30 ml HS PRN PO CONSTIPATION; Start at 20:00 Bisacodyl (Dulcolax Supp) 10 mg DAILY PRN [place] CONSTIPATION; Start 01/13/17 at 20:00 Sodium Biphosphate/ Sodium Phosphate (Fleet Enema) 133 ml DAILY PRN [place] CONSTIPATION; Start 01/13/17 at 20:00 Diphenhydramine HCl (Benadryl) 25 mg Q4H PRN IM ITCHING OR RASH; Start at 20:00 Ketorolac Tromethamine (Toradol) 15 mg Q6 PRN IV PAIN Last administered on 01:07; Admin Dose 15 MG; Start 01/13/17 at 20:00; Stop 01/17/17 at 19: 59 Naloxone HCl (Narcan) 0.2 mg Q2M PRN IV DECREASED REPIRATORY RATE; Start at 20:00 Tramadol HCl (Ultram) 50 mg Q6H PRN PO PAIN; Start 01/13/17 at 20:00 Ciprofloxacin (Cipro) 500 mg BID@06,18 PO ; Start 01/14/17 at 18:00 Lactobacillus Acidophilus 1 each 1 each BID PO Last administered on 01/14/17 12:17; Admin Dose 1 EACH; Start 01/14/17 at 09:00 Vancomycin HCl 1.75 gm/Sodium Chloride 500 ml @ 125 mls/hr ONCE IVPB Last administered on 01/14/17 12:17; Admin Dose 125 MLS/HR; Start 01/14/17 at 10: 00; Stop 01/14/17 at 19:00 Vancomycin HCl/ Sodium Chloride (Vancocin/NS) 250 ml @ 83.333 mls/ hr Q24H IVPB ; Start 01/15/17 at 10:00 Thyroid (Argyle Thyroid) 120 mg DAILY PO ; Start 01/14/17 at 14:00 SHIRA GALVAN MD Jan 14, 2017 14:42
[2017-01-14 15:16] VITALS: BP 107/55; RESP 20
--- NOTE | 2017-01-14 15:24 | RADRPT ---
PROCEDURE: Right knee series CLINICAL INDICATION: Postop TECHNIQUE: AP supine right knee image was obtained COMPARISON: Bilateral knee series 07/01/2016 FINDINGS: There has been placement of a total right knee prosthesis without evidence of dislocation or looseni ng. There are no acute fractures. Soft tissue gas is consistent postoperative change. The soft tissu es are otherwise unremarkable. IMPRESSION: Right total knee prosthesis in place without evidence of dislocation or loosening. RPTAT:AAJJ Physician Latrell Date Time Electronically viewed and signed by Physician Latrell on 01/14/2017 15:24 BM/
--- NOTE | 2017-01-14 17:36 | OPR ---
Date/Time of Note Date/Time of Note DATE: 01/14/17 TIME: 17:29 Operative Report Procedure Date: Jan 13, 2017 Preoperative Diagnosis Infected right knee replacement Postoperative Diagnosis Same Operation/Procedure Performed Stage I revision of right total knee replacement Surgeon see signature line Geometry Tutor pool Second Geometry Tutor: POOL TIJERINA PA-C Anesthesia Type: spinal Estimated Blood Loss: 250 - 300 ml's Transfusion none Specimen Cultures Grafts/Implants depuy 3 femur, 4 tibia, 12.5 mm polyethylene. Tubes/Drains None Complications none Pt Condition Post Procedure: stable Disposition: PACU Indications 66-year-old female with progressive pain in her right knee with loosening of the tibial component. The examination and x-rays are suspicious for infection Procedure Description The patient was placed supine on the operating room table. The right knee was prepped and draped in usual manner. An anterior midline incision was made on the right knee. Medial parapatellar approach was used and the patella displaced laterally without everting it. Large effusion was found in the right knee. There was significant granulation tissue and inflammation suggestive of infection. Cultures were obtained. Tissue was sent for culture as well. It was noted that the tibial component was completely loose. The femoral and tibial components were removed with the help of microsagittal saw and flexible osteotomes. The patellar component was removed as well. The knee was thoroughly debrided and irrigated with antibiotic solution. There was significant bone loss mostly on the tibial side. The intramedullary canal of the femur and tibia was opened. The IM canal was thoroughly irrigated as well. After this, a size 3 femur and a size 4 tibia was chosen to be inserted as a spacer. 3 bags of cement were mixed with 4 g of vancomycin and 4.8 g of tobramycin. The cement was used for the femoral and tibial components. A large amount of cement was placed behind the tibia and the femur as well as into intramedullary canal to provide antibiotics and to the bone and tissue. 12.5 mm of polyethylene were placed to create a stable knee that was reasonably well aligned. X-rays were obtained and found to be satisfactory. The patella was left un-resurfaced. The wound was thoroughly irrigated and closed in layers using #1 Vicryl for arthrotomy and fascia 2-0 Vicryl for subcutaneous tissue and 3-0 Monocryl for the skin. A sterile bandage was applied and the patient transferred to the recovery room in stable condition. HO MATA Jan 14, 2017 17:36
[2017-01-14] MEDS: CIPROFLOXACIN 500 MG TAB PO SCH (19:02)
[2017-01-14] MEDS: THYROID 60 MG TAB PO SCH (19:02)
[2017-01-15 01:59] VITALS: BP 118/56; RESP 18
[2017-01-15] MEDS: oxyCODONE 5 MG TAB PO PRN ×4 (03:16→20:15)
[2017-01-15] MEDS ORDERED: ALTEPLASE (CATHFLO) 2 MG INJ CATHETER ONE (07:00)
--- NOTE | 2017-01-15 08:31 | CONS ---
Date/Time of Note Date/Time of Note DATE: 01/15/17 TIME: 08:29 Assessment/Plan Assessment/Plan Chief Complaint/Hosp Course 1) S/p removal of hardware for presumed infection of the R knee she had a prior aspiration of the joint fluid which did not grow any organisms She is reported to have elevated ESR I have contacted the PA, Quirino Galloway to get results of the knee fluid cell count will start IV vanco with po cipro and anticipate a 6 week course followed by po antibiotics for an extended period she will be on probiotics while on antibiotics Case management referral has been made for home IV vanco pt already has a port placed in anticipation for home IV antibiotics. I will order ESR and CRP for tomorrow to get a baseline reading and follow on a weekly basis. 01/15 - await ESR, CRP pt is on 1.5gm of IV vanco q24 hours with po cipro current cx are all NGTD 2) hypothyroidism 3)hx of DVT with IVC filter Problems: Consultation Date/Type/Reason Admit Date/Time Jan 13, 2017 at 12:18 Initial Consult Date 01/14/17 Type of Consultation: ID Referring Provider: HO MATA 24 HR Interval Summary Free Text/Dictation no N, V, D no SOB has incisional pain but also pain that goes down to the ankle Exam/Review of Systems Vital Signs Vitals Vital Signs Date Time Temp Pulse Resp B/P Pulse Ox O2 Delivery O2 Flow Rate FiO2 01/15/17 01:59 98.3 73 18 118/56 96 01/14/17 02:15 Nasal Cannula 01/13/17 22:01 2.0 Intake and Output 01/14/17 01/14/17 01/15/17 15:00 23:00 07:00 Intake Total 400 ml 1220 ml 960 ml Output Total 1000 ml Balance 400 ml 1220 ml -40 ml Exam Constitutional: alert, oriented Head: normocephalic Eyes: nl sclera ENMT: mucosa pink and moist Respiratory: clear to auscultation Cardiovascular: regular rate and rhythm Gastrointestinal: non-tender, soft Extremities: other (R knee is wrapped with ice machine, no swelling at ankle) Results Result Diagram: 01/14/17 0434 01/14/17 0500 Medications Medications Current Medications Sodium Chloride (NS) 1,000 ml @ 80 mls/hr [id number] IV Last administered on 01:31; Admin Dose 80 MLS/HR; Start 01/13/17 at 19:50 Oxycodone HCl (Roxicodone) 20 mg Q3H PRN PO PAIN LEVEL 8-10 Last administered on 01/15/17 03:16; Admin Dose 20 MG; Start 01/13/17 at 20:00 Oxycodone HCl (Roxicodone) 10 mg Q3H PRN PO PAIN LEVEL 4-7 Last administered on 01/14/17 15:21; Admin Dose 10 MG; Start 01/13/17 at 20:00 Oxycodone HCl (Roxicodone) 5 mg Q3H PRN PO PAIN LEVEL 1-3; Start 01/13/17 at 20:00 Zolpidem Tartrate (Ambien) 5 mg HS PRN PO INSOMNIA; Start 01/13/17 at 20:00 Aspirin (Ecotrin) 325 mg DAILY PO Last administered on 01/14/17 08:44; Admin Dose 325 MG; Start 01/14/17 at 09:00 Celecoxib (Celebrex) 100 mg BID PO Last administered on 01/14/17 22:07; Admin Dose 100 MG; Start 01/14/17 at 08:30 Pantoprazole (Protonix Tab) 40 mg DAILY@06 PO ; Start 01/15/17 at 06:00 Docusate Sodium/ Ferrous Fumarate (Manda-Sequels) 1 tab BID PO ; Start at 09:00 Docusate Sodium (Colace) 200 mg BID PO Last administered on 01/14/17 22:07; Admin Dose 200 MG; Start 01/14/17 at 09:00; Stop 01/17/17 at 08:59 Simethicone (Mylicon) 80 mg TID PRN PO DISTENSION/GAS/BLOATING; Start at 20:00 Senna/Docusate Sodium (Senokot-S) 2 tab BID PRN PO CONSTIPATION; Start at 20:00 Magnesium Hydroxide (Milk Of Mag) 30 ml HS PRN PO CONSTIPATION; Start at 20:00 Bisacodyl (Dulcolax Supp) 10 mg DAILY PRN [place] CONSTIPATION; Start 01/13/17 at 20:00 Sodium Biphosphate/ Sodium Phosphate (Fleet Enema) 133 ml DAILY PRN [place] CONSTIPATION; Start 01/13/17 at 20:00 Diphenhydramine HCl (Benadryl) 25 mg Q4H PRN IM ITCHING OR RASH; Start at 20:00 Ketorolac Tromethamine (Toradol) 15 mg Q6 PRN IV PAIN Last administered on 01:07; Admin Dose 15 MG; Start 01/13/17 at 20:00; Stop 01/17/17 at 19: 59 Naloxone HCl (Narcan) 0.2 mg Q2M PRN IV DECREASED REPIRATORY RATE; Start at 20:00 Tramadol HCl (Ultram) 50 mg Q6H PRN PO PAIN; Start 01/13/17 at 20:00 Ciprofloxacin (Cipro) 500 mg BID@06,18 PO Last administered on 01/14/17 19:02 ; Admin Dose 500 MG; Start 01/14/17 at 18:00 Lactobacillus Acidophilus 1 each 1 each BID PO Last administered on 01/14/17 22:06; Admin Dose 1 EACH; Start 01/14/17 at 09:00 Vancomycin HCl/ Sodium Chloride (Vancocin/NS) 250 ml @ 83.333 mls/ hr Q24H IVPB ; Start 01/15/17 at 10:00 Thyroid (Makanda Thyroid) 120 mg DAILY PO Last administered on 01/14/17 19:02 ; Admin Dose 120 MG; Start 01/14/17 at 14:00 ADARSH CAZARES MD Jan 15, 2017 08:31
[2017-01-15 08:41] VITALS: BP 101/52; RESP 18
[2017-01-15] MEDS ORDERED: ALTEPLASE (CATHFLO) 2 MG INJ CATHETER PRN (09:00)
[2017-01-15] MEDS: THYROID 60 MG TAB PO SCH (09:00)
[2017-01-15] MEDS: DOCUSATE SODIUM 100 MG CAP PO SCH ×2 (09:00→20:14)
[2017-01-15] MEDS: FERROUS FUMARATE (SR) TAB PO SCH ×2 (09:00→20:23)
[2017-01-15] MEDS: ASPIRIN (EC) 325 MG TAB PO SCH (09:00)
[2017-01-15] MEDS: CELECOXIB 100 MG CAP PO SCH ×2 (09:00→20:14)
[2017-01-15] MEDS: CIPROFLOXACIN 500 MG TAB PO SCH ×2 (09:01→17:58)
[2017-01-15] MEDS: L ACIDOPHIL/B LACTIS/B LONGUM CAPSULE PO SCH ×2 (09:01→20:18)
[2017-01-15] MEDS: PANTOPRAZOLE (EC) 40 MG TAB PO SCH (09:01)
[2017-01-15] MEDS: SOD CHLORIDE 0.9% 1,000 ML IV SCH ×2 (09:20→21:50)
[2017-01-15] MEDS: VANCOMYCIN 1.5 GM in SOD CHLORIDE 0.9% 250 ML IVPB SCH (10:49)
--- NOTE | 2017-01-15 11:50 | PN ---
Date/Time of Note Date/Time of Note DATE: 01/15/17 TIME: 11:49 Assessment/Plan VTE Prophylaxis VTE Prophylaxis Intervention: ambulation, SCD's, other Lines/Catheters IV Catheter Type (from Nrsg): Port-A-Cath Urinary Cath still in place: No Subjective 24 Hr Interval Summary Free Text/Dictation Kourtney is progressing well after stage I revision of her knee for infection. She does report more pain today. She has been ambulating with a walker. There is no neurovascular deficit. We will continue IV antibiotics under the supervision of infectious disease product marketing consultant. Exam/Review of Systems Vital Signs Vitals Vital Signs Date Time Temp Pulse Resp B/P Pulse Ox O2 Delivery O2 Flow Rate FiO2 01/15/17 08:41 97.5 79 18 101/52 99 01/14/17 02:15 Nasal Cannula 01/13/17 22:01 2.0 Intake and Output 01/14/17 01/14/17 01/15/17 14:59 22:59 06:59 Intake Total 400 ml 1220 ml 960 ml Output Total 1000 ml Balance 400 ml 1220 ml -40 ml Results Result Diagram: 01/14/17 0434 01/14/17 0500 Results 24 hrs Laboratory Tests Test 01/15/17 10:46 White Blood Count Pending Red Blood Count Pending Hemoglobin Pending Hematocrit Pending Mean Corpuscular Volume Pending Mean Corpuscular Hemoglobin Pending Mean Corpuscular Hemoglobin Concent Pending Red Cell Distribution Width Pending Platelet Count Pending Mean Platelet Volume Pending Medications Medications Current Medications Sodium Chloride (NS) 1,000 ml @ 80 mls/hr [id number] IV Last administered on 01:31; Admin Dose 80 MLS/HR; Start 01/13/17 at 19:50 Oxycodone HCl (Roxicodone) 20 mg Q3H PRN PO PAIN LEVEL 8-10 Last administered on 01/15/17 10:02; Admin Dose 20 MG; Start 01/13/17 at 20:00 Oxycodone HCl (Roxicodone) 10 mg Q3H PRN PO PAIN LEVEL 4-7 Last administered on 01/14/17 15:21; Admin Dose 10 MG; Start 01/13/17 at 20:00 Oxycodone HCl (Roxicodone) 5 mg Q3H PRN PO PAIN LEVEL 1-3; Start 01/13/17 at 20:00 Zolpidem Tartrate (Ambien) 5 mg HS PRN PO INSOMNIA; Start 01/13/17 at 20:00 Aspirin (Ecotrin) 325 mg DAILY PO Last administered on 01/15/17 09:00; Admin Dose 325 MG; Start 01/14/17 at 09:00 Celecoxib (Celebrex) 100 mg BID PO Last administered on 01/15/17 09:00; Admin Dose 100 MG; Start 01/14/17 at 08:30 Pantoprazole (Protonix Tab) 40 mg DAILY@06 PO Last administered on 01/15/17 09:01; Admin Dose 40 MG; Start 01/15/17 at 06:00 Docusate Sodium/ Ferrous Fumarate (Manda-Sequels) 1 tab BID PO ; Start at 09:00 Docusate Sodium (Colace) 200 mg BID PO Last administered on 01/15/17 09:00; Admin Dose 200 MG; Start 01/14/17 at 09:00; Stop 01/17/17 at 08:59 Simethicone (Mylicon) 80 mg TID PRN PO DISTENSION/GAS/BLOATING; Start at 20:00 Senna/Docusate Sodium (Senokot-S) 2 tab BID PRN PO CONSTIPATION; Start at 20:00 Magnesium Hydroxide (Milk Of Mag) 30 ml HS PRN PO CONSTIPATION; Start at 20:00 Bisacodyl (Dulcolax Supp) 10 mg DAILY PRN [place] CONSTIPATION; Start 01/13/17 at 20:00 Sodium Biphosphate/ Sodium Phosphate (Fleet Enema) 133 ml DAILY PRN [place] CONSTIPATION; Start 01/13/17 at 20:00 Diphenhydramine HCl (Benadryl) 25 mg Q4H PRN IM ITCHING OR RASH; Start at 20:00 Ketorolac Tromethamine (Toradol) 15 mg Q6 PRN IV PAIN Last administered on 01:07; Admin Dose 15 MG; Start 01/13/17 at 20:00; Stop 01/17/17 at 19: 59 Naloxone HCl (Narcan) 0.2 mg Q2M PRN IV DECREASED REPIRATORY RATE; Start at 20:00 Tramadol HCl (Ultram) 50 mg Q6H PRN PO PAIN; Start 01/13/17 at 20:00 Ciprofloxacin (Cipro) 500 mg BID@06,18 PO Last administered on 01/15/17 09:01 ; Admin Dose 500 MG; Start 01/14/17 at 18:00 Lactobacillus Acidophilus 1 each 1 each BID PO Last administered on 01/15/17 09:01; Admin Dose 1 EACH; Start 01/14/17 at 09:00 Vancomycin HCl/ Sodium Chloride (Vancocin/NS) 250 ml @ 83.333 mls/ hr Q24H IVPB Last administered on 01/15/17 10:49; Admin Dose 83.333 MLS/HR; Start at 10:00 Thyroid ([place] Thyroid) 120 mg DAILY PO Last administered on 01/15/17 09:00 ; Admin Dose 120 MG; Start 01/14/17 at 14:00 HO MATA Jan 15, 2017 11:50
[2017-01-15 11:53] LABS: BASOPHIL # 0.1 10^3/ul (0.0-0.1); BASOPHILS % 0.5 % (0.0-2.0); EOSINOPHILS # 0.2 10^3/ul (0.0-0.5); EOSINOPHILS % 2.2 % (0.0-7.0); HEMATOCRIT 28.6 % (37.0-47.0); HEMOGLOBIN 9.5 g/dl (12.0-16.0); LYMPHOCYTES # 3.2 10^3/ul (0.8-2.9); LYMPHOCYTES % 34.2 % (15.0-51.0); MEAN CORPUSCULAR HGB CONC 33.2 g/dl (32.0-37.0); MEAN CORPUSCULAR VOLUME 90.2 fl (82.0-101.0); MEAN PLATELET VOLUME 12.5 fl (7.4-10.4); MONOCYTE # 0.8 10^3/ul (0.3-0.9); MONOCYTES % 8.5 % (0.0-11.0); NEUTROPHIL # 5.1 10^3/ul (1.6-7.5); NEUTROPHILS % 54.3 % (39.0-77.0); PLATELET COUNT 141 10^3/UL (140-415); RED BLOOD COUNT 3.17 10^6/ul (4.20-5.40); RED CELL DISTRIBUTION WIDTH 13.2 % (11.5-14.5); WHITE BLOOD COUNT 9.5 10^3/ul (4.8-10.8)
--- NOTE | 2017-01-15 12:13 | PN ---
Date/Time of Note Date/Time of Note DATE: 01/15/17 TIME: 12:11 Assessment/Plan VTE Prophylaxis VTE Prophylaxis Intervention: SCD's (ivc filter in) Lines/Catheters IV Catheter Type (from Nrsg): Port-A-Cath Urinary Cath still in place: No Subjective 24 Hr Interval Summary Free Text/Dictation 66 yr old woman post removal tkr for infection. had ivc filter placed preop because of hx dvt vs ok afebrile alert and talkative, did get up w pt with wbat on antibiotics per dr noriega wbc ok, hgb stable has edema rt leg Musculoskeletal: bone/joint pain Exam/Review of Systems Vital Signs Vitals Vital Signs Date Time Temp Pulse Resp B/P Pulse Ox O2 Delivery O2 Flow Rate FiO2 01/15/17 08:41 97.5 79 18 101/52 99 01/14/17 02:15 Nasal Cannula 01/13/17 22:01 2.0 Intake and Output 01/14/17 01/14/17 01/15/17 15:00 23:00 07:00 Intake Total 400 ml 1220 ml 960 ml Output Total 1000 ml Balance 400 ml 1220 ml -40 ml Results Result Diagram: 01/15/17 1046 01/14/17 0500 Results 24 hrs Laboratory Tests Test 01/15/17 10:46 White Blood Count 9.5 Red Blood Count 3.17 L Hemoglobin 9.5 L Hematocrit 28.6 L Mean Corpuscular Volume 90.2 Mean Corpuscular Hemoglobin 30.0 Mean Corpuscular Hemoglobin Concent 33.2 Red Cell Distribution Width 13.2 Platelet Count 141 Mean Platelet Volume 12.5 H Neutrophils % 54.3 Lymphocytes % 34.2 Monocytes % 8.5 Eosinophils % 2.2 Basophils % 0.5 Nucleated Red Blood Cells % 0.0 Neutrophils # 5.1 Lymphocytes # 3.2 H Monocytes # 0.8 Eosinophils # 0.2 Basophils # 0.1 Nucleated Red Blood Cells # 0.0 Medications Medications Current Medications Sodium Chloride (NS) 1,000 ml @ 80 mls/hr [id number] IV Last administered on 01:31; Admin Dose 80 MLS/HR; Start 01/13/17 at 19:50 Oxycodone HCl (Roxicodone) 20 mg Q3H PRN PO PAIN LEVEL 8-10 Last administered on 01/15/17 10:02; Admin Dose 20 MG; Start 01/13/17 at 20:00 Oxycodone HCl (Roxicodone) 10 mg Q3H PRN PO PAIN LEVEL 4-7 Last administered on 01/14/17 15:21; Admin Dose 10 MG; Start 01/13/17 at 20:00 Oxycodone HCl (Roxicodone) 5 mg Q3H PRN PO PAIN LEVEL 1-3; Start 01/13/17 at 20:00 Zolpidem Tartrate (Ambien) 5 mg HS PRN PO INSOMNIA; Start 01/13/17 at 20:00 Aspirin (Ecotrin) 325 mg DAILY PO Last administered on 01/15/17 09:00; Admin Dose 325 MG; Start 01/14/17 at 09:00 Celecoxib (Celebrex) 100 mg BID PO Last administered on 01/15/17 09:00; Admin Dose 100 MG; Start 01/14/17 at 08:30 Pantoprazole (Protonix Tab) 40 mg DAILY@06 PO Last administered on 01/15/17 09:01; Admin Dose 40 MG; Start 01/15/17 at 06:00 Docusate Sodium/ Ferrous Fumarate (Manda-Sequels) 1 tab BID PO ; Start at 09:00 Docusate Sodium (Colace) 200 mg BID PO Last administered on 01/15/17 09:00; Admin Dose 200 MG; Start 01/14/17 at 09:00; Stop 01/17/17 at 08:59 Simethicone (Mylicon) 80 mg TID PRN PO DISTENSION/GAS/BLOATING; Start at 20:00 Senna/Docusate Sodium (Senokot-S) 2 tab BID PRN PO CONSTIPATION; Start at 20:00 Magnesium Hydroxide (Milk Of Mag) 30 ml HS PRN PO CONSTIPATION; Start at 20:00 Bisacodyl (Dulcolax Supp) 10 mg DAILY PRN [place] CONSTIPATION; Start 01/13/17 at 20:00 Sodium Biphosphate/ Sodium Phosphate (Fleet Enema) 133 ml DAILY PRN [place] CONSTIPATION; Start 01/13/17 at 20:00 Diphenhydramine HCl (Benadryl) 25 mg Q4H PRN IM ITCHING OR RASH; Start at 20:00 Ketorolac Tromethamine (Toradol) 15 mg Q6 PRN IV PAIN Last administered on 01:07; Admin Dose 15 MG; Start 01/13/17 at 20:00; Stop 01/17/17 at 19: 59 Naloxone HCl (Narcan) 0.2 mg Q2M PRN IV DECREASED REPIRATORY RATE; Start at 20:00 Tramadol HCl (Ultram) 50 mg Q6H PRN PO PAIN; Start 01/13/17 at 20:00 Ciprofloxacin (Cipro) 500 mg BID@06,18 PO Last administered on 01/15/17 09:01 ; Admin Dose 500 MG; Start 01/14/17 at 18:00 Lactobacillus Acidophilus 1 each 1 each BID PO Last administered on 01/15/17 09:01; Admin Dose 1 EACH; Start 01/14/17 at 09:00 Vancomycin HCl/ Sodium Chloride (Vancocin/NS) 250 ml @ 83.333 mls/ hr Q24H IVPB Last administered on 01/15/17 10:49; Admin Dose 83.333 MLS/HR; Start at 10:00 Thyroid ([place] Thyroid) 120 mg DAILY PO Last administered on 01/15/17 09:00 ; Admin Dose 120 MG; Start 01/14/17 at 14:00 RAMSES CARPIO MD Jan 15, 2017 12:13
[2017-01-15 12:14] LABS: CALCIUM 8.5 mg/dl (8.4-10.2); CREATININE 0.59 mg/dl (0.44-1.00); POTASSIUM 3.9 mmol/L (3.5-5.1)
[2017-01-15] MEDS: KETOROLAC 15 MG INJ IV PRN ×2 (15:28→22:09)
[2017-01-15 20:31] VITALS: BP 123/77; RESP 20
[2017-01-16] MEDS: oxyCODONE 5 MG TAB PO PRN ×4 (03:23→19:59)
[2017-01-16] MEDS: PANTOPRAZOLE (EC) 40 MG TAB PO SCH (06:19)
[2017-01-16] MEDS: CIPROFLOXACIN 500 MG TAB PO SCH ×2 (06:19→17:50)
[2017-01-16] MEDS: KETOROLAC 15 MG INJ IV PRN (06:40)
[2017-01-16 08:32] VITALS: BP 118/61; RESP 18
[2017-01-16 08:48] LABS: BASOPHILS % 0.5 % (0.0-2.0); EOSINOPHILS # 0.4 10^3/ul (0.0-0.5); EOSINOPHILS % 4.5 % (0.0-7.0); HEMATOCRIT 25.5 % (37.0-47.0); HEMOGLOBIN 8.3 g/dl (12.0-16.0); LYMPHOCYTES # 2.4 10^3/ul (0.8-2.9); MEAN CORPUSCULAR HEMOGLOBIN 29.6 pg (29.0-33.0); MEAN CORPUSCULAR HGB CONC 32.5 g/dl (32.0-37.0); MEAN CORPUSCULAR VOLUME 91.1 fl (82.0-101.0); MEAN PLATELET VOLUME 12.1 fl (7.4-10.4); MONOCYTE # 0.6 10^3/ul (0.3-0.9); MONOCYTES % 7.8 % (0.0-11.0); NEUTROPHIL # 4.3 10^3/ul (1.6-7.5); NEUTROPHILS % 55.8 % (39.0-77.0); PLATELET COUNT 149 10^3/UL (140-415); RED CELL DISTRIBUTION WIDTH 13.2 % (11.5-14.5); WHITE BLOOD COUNT 7.7 10^3/ul (4.8-10.8)
[2017-01-16] MEDS: L ACIDOPHIL/B LACTIS/B LONGUM CAPSULE PO SCH ×2 (08:53→21:06)
[2017-01-16] MEDS: CELECOXIB 100 MG CAP PO SCH ×2 (08:53→21:06)
[2017-01-16] MEDS: FERROUS FUMARATE (SR) TAB PO SCH ×2 (08:54→21:00)
[2017-01-16] MEDS: ASPIRIN (EC) 325 MG TAB PO SCH (08:54)
[2017-01-16] MEDS: DOCUSATE SODIUM 100 MG CAP PO SCH ×2 (08:54→21:06)
[2017-01-16] MEDS: THYROID 60 MG TAB PO SCH (08:54)
--- NOTE | 2017-01-16 09:04 | PN ---
Date/Time of Note Date/Time of Note DATE: 01/16/17 TIME: 09:01 Assessment/Plan VTE Prophylaxis VTE Prophylaxis Intervention: ambulation, SCD's, other (Aspirin 325 mg) Lines/Catheters IV Catheter Type (from Nrs): PORT A CATH [place] in Place (from Nrs): No Assessment/Plan Assessment/Plan -Pain Meds as needed -ASA for DVT Prophylaxis x 4 weeks outpatient discussed. -Continue monitoring as outpatient on discharge -Follow-up at scheduled postop outpatient appointment or sooner if there is any issue. -Hip precautions discussed -Venous Doppler ordered today. If Doppler is negative likely she will be discharged home today with home health. -Patient Stable -Discharge to Home with home health pending if Doppler results to the right lower extremity are negative. Subjective 24 Hr Interval Summary 66-year-old female postop day 3 status post stage I right total knee revision with antibiotic spacer. No acute events overnight. Denies any chest pain/ tightness. Denies any shortness of breath. Patient is complaining of right sided calf pain today. She also complains of swelling to the foot. Has initiated physical therapy with ambulation. Pain Control: mild Exam/Review of Systems Vital Signs Vitals Vital Signs Date Time Temp Pulse Resp B/P Pulse Ox O2 Delivery O2 Flow Rate FiO2 01/16/17 08:32 97.7 60 18 118/61 92 01/14/17 02:15 Nasal Cannula 01/13/17 22:01 2.0 Intake and Output 01/15/17 01/15/17 01/16/17 15:00 23:00 07:00 Intake Total 250 ml 720 ml 400 ml Output Total 600 ml Balance 250 ml 720 ml -200 ml Exam Free Text/Dictation -No complications with dressing intact. -5/5 Tibialis Anterior, EHL Gastrocnemius/Soleus and Peroneals -Normal Sensation -Palpable DP/PT, Capillary Refill <2 secs -Mild to moderate distal pedal edema -+ Justa Sign/+ calf pain -Toes Freely Movable Constitutional: alert, oriented, well developed Results Result Diagram: 01/16/17 0803 01/15/17 1046 PATRICK TIJERINA PA-C Jan 16, 2017 09:04
[2017-01-16 09:09] LABS: CALCIUM 8.7 mg/dl (8.4-10.2); CREATININE 0.65 mg/dl (0.44-1.00); POTASSIUM 4.2 mmol/L (3.5-5.1)
[2017-01-16] MEDS: DIPHENHYDRAMINE 50 MG INJ IM PRN ×2 (09:44→19:58)
[2017-01-16] MEDS: VANCOMYCIN 1.5 GM in SOD CHLORIDE 0.9% 250 ML IVPB SCH (09:45)
[2017-01-16] MEDS: SOD CHLORIDE 0.9% 1,000 ML IV SCH ×2 (10:20→22:50)
--- NOTE | 2017-01-16 10:49 | RADRPT ---
PROCEDURE: US Lower extremity Venous. CLINICAL INDICATION: Pain and swelling TECHNIQUE: Multiple sonographic images of the right lower extremity deep venous system was obtaine d utilizing grayscale, color-flow, compressive sonography and doppler imaging with augmentation. Th e images were reviewed on a PACS workstation. COMPARISON: None. FINDINGS: There is normal compressibility and flow within the right common femoral, deep femoral, superficial femoral and popliteal veins. Normal respiratory variation and augmentation is seen. There is normal color flow and compressibility of right posterior tibial and peroneal veins IMPRESSION: No sonographic evidence for right lower extremity deep venous thrombosis. RPTAT: HH .Eric Ayala MD, MD Date Time Electronically viewed and signed by .Eric Ayala MD, on 01/16/2017 10:48 .W/
--- NOTE | 2017-01-16 11:12 | CONS ---
Date/Time of Note Date/Time of Note DATE: 01/16/17 TIME: 11:07 Assessment/Plan Assessment/Plan Problems: (1) Hypothyroidism Status: Chronic Comment: Cont. LT4 (2) GERD (gastroesophageal reflux disease) Status: Chronic Comment: Cont. PPI (3) Personal history of DVT (deep vein thrombosis) Status: Chronic Comment: IVC filter in place (4) Infection of total right knee replacement Status: Acute Comment: Doing well post-surgery. ID monitoring. Cont. IV antibiotics. (5) Aftercare following right knee joint replacement surgery Status: Acute Comment: Doing fair POD#2. A lot of swelling locally around joint. (6) Postoperative anemia Status: Acute Comment: Not severe enough to merit transfusion. FeSO4 daily. (7) Localized edema Status: Acute Comment: Likely due to post-infection inflammatory response. No DVT on CRYSTAL. Cont. to monitor. Consultation Date/Type/Reason Admit Date/Time Jan 13, 2017 at 12:18 Initial Consult Date 01/14/17 Type of Consultation: Medicine Reason for Consultation Medical management Referring Provider: HO MATA 24 HR Interval Summary Constitutional: improved, no complaints Detailed Summary Respiratory: no complaints Cardiovascular: no complaints Gastrointestinal: no complaints Genitourinary: no complaints Musculoskeletal: bone/joint pain (R knee pain, swelling of RLE, knee, and R foot; does not want diuretics at this time.) Neurologic: no complaints Exam/Review of Systems Vital Signs Vitals VS - Last 72 Hours, by Label Date Time Temp Pulse Resp B/P Pulse Ox O2 Delivery O2 Flow Rate FiO2 01/16/17 08:32 97.7 60 18 118/61 92 01/15/17 20:31 98.2 70 20 123/77 97 01/15/17 08:41 97.5 79 18 101/52 99 01/15/17 01:59 98.3 73 18 118/56 96 01/14/17 15:16 97.6 89 20 107/55 96 01/14/17 07:53 97.9 85 18 123/87 96 01/14/17 02:15 97.8 88 16 126/58 97 Nasal Cannula 01/14/17 01:15 88 16 142/67 98 Nasal Cannula 01/14/17 00:15 90 16 135/68 99 Nasal Cannula 01/13/17 23:45 93 16 135/63 98 Nasal Cannula 01/13/17 23:15 92 16 127/65 98 Room Air Nasal Cannula 01/13/17 23:00 87 16 121/58 95 Nasal Cannula 01/13/17 22:45 84 16 134/63 97 Room Air Nasal Cannula 01/13/17 22:30 97.7 87 16 119/67 96 Room Air Nasal Cannula 01/13/17 22:16 86 14 96 Nasal Cannula 01/13/17 22:01 86 23 122/64 96 Nasal Cannula 2.0 01/13/17 21:46 82 16 97 Nasal Cannula 2.0 01/13/17 21:31 98.6 82 14 112/65 98 Nasal Cannula 2.0 01/13/17 21:06 88 15 111/62 98 Nasal Cannula 2.0 01/13/17 21:01 86 14 111/62 95 Nasal Cannula 2.0 01/13/17 20:56 90 18 110/67 96 Nasal Cannula 2.0 01/13/17 20:51 92 13 127/66 96 Nasal Cannula 2.0 01/13/17 20:46 90 18 112/63 95 Nasal Cannula 2.0 01/13/17 20:41 90 10 118/61 98 Nasal Cannula 2.0 01/13/17 20:36 90 19 119/66 99 Nasal Cannula 2.0 01/13/17 20:31 88 19 112/60 98 Nasal Cannula 2.0 01/13/17 20:26 88 10 114/62 99 Nasal Cannula 2.0 01/13/17 20:21 90 12 115/63 99 Nasal Cannula 2.0 01/13/17 20:16 96 18 111/62 94 Nasal Cannula 2.0 01/13/17 20:11 96 15 111/60 99 Nasal Cannula 2.0 01/13/17 20:06 96 17 131/69 98 Mask 8.0 01/13/17 20:03 98.3 01/13/17 20:01 96 14 136/61 97 Mask 8.0 01/13/17 19:59 96 16 141/62 97 Mask 8.0 01/13/17 19:54 98.3 102 20 188/103 98 Mask 01/13/17 14:35 98.3 102 18 109/73 96 Room Air Vital Signs Date Time Temp Pulse Resp B/P Pulse Ox O2 Delivery O2 Flow Rate FiO2 01/16/17 08:32 97.7 60 18 118/61 92 01/14/17 02:15 Nasal Cannula 01/13/17 22:01 2.0 Intake and Output 01/15/17 01/15/17 01/16/17 15:00 23:00 07:00 Intake Total 250 ml 720 ml 400 ml Output Total 600 ml Balance 250 ml 720 ml -200 ml Exam Constitutional: alert, obese, oriented Psych: nl mood/affect, no complaints Respiratory: clear to auscultation, normal air movement Cardiovascular: edema (RLE), nl pulses, regular rate and rhythm, No murmurs/extra sounds, No rub Gastrointestinal: bowel sounds, nl liver, spleen, non-tender, soft, No mass, No rebound or guarding Musculoskeletal: nl extremities to inspection Extremities: edema (RLE), normal pulses, No clubbing, No cyanosis Neurological: CHAIR MECHANIC II-XII intact, nl mental status, nl speech, nl strength Results Result Diagram: 01/16/17 0803 01/16/17 0803 Results 24 hrs Laboratory Tests Test 01/16/17 08:03 White Blood Count 7.7 Red Blood Count 2.80 L Hemoglobin 8.3 L Hematocrit 25.5 L Mean Corpuscular Volume 91.1 Mean Corpuscular Hemoglobin 29.6 Mean Corpuscular Hemoglobin Concent 32.5 Red Cell Distribution Width 13.2 Platelet Count 149 Mean Platelet Volume 12.1 H Neutrophils % 55.8 Lymphocytes % 31.0 Monocytes % 7.8 Eosinophils % 4.5 Basophils % 0.5 Nucleated Red Blood Cells % 0.0 Neutrophils # 4.3 Lymphocytes # 2.4 Monocytes # 0.6 Eosinophils # 0.4 Basophils # 0.0 Nucleated Red Blood Cells # 0.0 Sodium Level 138 Potassium Level 4.2 Chloride Level 103 Carbon Dioxide Level 31 Anion Gap 8 Blood Urea Nitrogen 16 Creatinine 0.65 Glucose Level 88 Calcium Level 8.7 Medications Medications Current Medications Sodium Chloride (NS) 1,000 ml @ 80 mls/hr [id number] IV Last administered on 01:31; Admin Dose 80 MLS/HR; Start 01/13/17 at 19:50 Oxycodone HCl (Roxicodone) 20 mg Q3H PRN PO PAIN LEVEL 8-10 Last administered on 01/16/17 09:52; Admin Dose 20 MG; Start 01/13/17 at 20:00 Oxycodone HCl (Roxicodone) 10 mg Q3H PRN PO PAIN LEVEL 4-7 Last administered on 01/14/17 15:21; Admin Dose 10 MG; Start 01/13/17 at 20:00 Oxycodone HCl (Roxicodone) 5 mg Q3H PRN PO PAIN LEVEL 1-3; Start 01/13/17 at 20:00 Zolpidem Tartrate (Ambien) 5 mg HS PRN PO INSOMNIA; Start 01/13/17 at 20:00 Aspirin (Ecotrin) 325 mg DAILY PO Last administered on 01/16/17 08:54; Admin Dose 325 MG; Start 01/14/17 at 09:00 Celecoxib (Celebrex) 100 mg BID PO Last administered on 01/16/17 08:53; Admin Dose 100 MG; Start 01/14/17 at 08:30 Pantoprazole (Protonix Tab) 40 mg DAILY@06 PO Last administered on 01/16/17 06:19; Admin Dose 40 MG; Start 01/15/17 at 06:00 Docusate Sodium/ Ferrous Fumarate (Manda-Sequels) 1 tab BID PO Last administered on 01/16/17 08:54; Admin Dose 1 TAB; Start 01/14/17 at 09:00 Docusate Sodium (Colace) 200 mg BID PO Last administered on 01/16/17 08:54; Admin Dose 200 MG; Start 01/14/17 at 09:00; Stop 01/17/17 at 08:59 Simethicone (Mylicon) 80 mg TID PRN PO DISTENSION/GAS/BLOATING; Start at 20:00 Senna/Docusate Sodium (Senokot-S) 2 tab BID PRN PO CONSTIPATION; Start at 20:00 Magnesium Hydroxide (Milk Of Mag) 30 ml HS PRN PO CONSTIPATION; Start at 20:00 Bisacodyl (Dulcolax Supp) 10 mg DAILY PRN [place] CONSTIPATION; Start 01/13/17 at 20:00 Sodium Biphosphate/ Sodium Phosphate (Fleet Enema) 133 ml DAILY PRN [place] CONSTIPATION; Start 01/13/17 at 20:00 Diphenhydramine HCl (Benadryl) 25 mg Q4H PRN IM ITCHING OR RASH Last administered on 01/16/17 09:44; Admin Dose 25 MG; Start 01/13/17 at 20:00 Naloxone HCl (Narcan) 0.2 mg Q2M PRN IV DECREASED REPIRATORY RATE; Start at 20:00 Tramadol HCl (Ultram) 50 mg Q6H PRN PO PAIN; Start 01/13/17 at 20:00 Ciprofloxacin (Cipro) 500 mg BID@06,18 PO Last administered on 01/16/17 06:19 ; Admin Dose 500 MG; Start 01/14/17 at 18:00 Lactobacillus Acidophilus 1 each 1 each BID PO Last administered on 01/16/17 08:53; Admin Dose 1 EACH; Start 01/14/17 at 09:00 Vancomycin HCl/ Sodium Chloride (Vancocin/NS) 250 ml @ 83.333 mls/ hr Q24H IVPB Last administered on 01/16/17 09:45; Admin Dose 83.333 MLS/HR; Start at 10:00 Thyroid ([place] Thyroid) 120 mg DAILY PO Last administered on 01/16/17 08:54 ; Admin Dose 120 MG; Start 01/14/17 at 14:00 SHIRA GALVAN MD Jan 16, 2017 11:12
[2017-01-16] MEDS: traMADol 50 MG TAB PO PRN (12:04)
[2017-01-16 20:15] VITALS: BP 119/59; RESP 22
[2017-01-17] MEDS: oxyCODONE 5 MG TAB PO PRN ×4 (04:31→21:30)
[2017-01-17] MEDS: CIPROFLOXACIN 500 MG TAB PO SCH ×2 (06:52→17:55)
[2017-01-17] MEDS: PANTOPRAZOLE (EC) 40 MG TAB PO SCH (06:52)
[2017-01-17 07:52] VITALS: BP 107/59; RESP 18
--- NOTE | 2017-01-17 08:16 | CONS ---
Date/Time of Note Date/Time of Note DATE: 01/17/17 TIME: 08:11 Assessment/Plan Assessment/Plan Chief Complaint/Hosp Course 1) S/p removal of hardware for presumed infection of the R knee she had a prior aspiration of the joint fluid which did not grow any organisms She is reported to have elevated ESR I have contacted the PA, Quirino Galloway to get results of the knee fluid cell count will start IV vanco with po cipro and anticipate a 6 week course followed by po antibiotics for an extended period she will be on probiotics while on antibiotics Case management referral has been made for home IV vanco pt already has a port placed in anticipation for home IV antibiotics. I will order ESR and CRP for tomorrow to get a baseline reading and follow on a weekly basis. 01/15 - await ESR, CRP pt is on 1.5gm of IV vanco q24 hours with po cipro current cx are all NGTD 01/17 - knee cx were neg for bacteria will ask micro to hold onto the cultures for 14 days as some less pathogenic organisms take longer to grow if home health can start on thursday and be present for her 10a.m. dose then pt can leave on thursday after her 10a.m. dose here will follow weekly her cbc, bmp, esr, crp and vanco trough as outpt (home health will draw labs and fax them to my office) 2) hypothyroidism 3)hx of DVT with IVC filter Problems: Consultation Date/Type/Reason Admit Date/Time Jan 13, 2017 at 12:18 Initial Consult Date 01/14/17 Type of Consultation: ID Referring Provider: HO MATA 24 HR Interval Summary Free Text/Dictation pt has less pain today no N, V pt had a BM yesterday, no abd pain Exam/Review of Systems Vital Signs Vitals Vital Signs Date Time Temp Pulse Resp B/P Pulse Ox O2 Delivery O2 Flow Rate FiO2 01/17/17 07:52 98.0 82 18 107/59 96 01/14/17 02:15 Nasal Cannula 01/13/17 22:01 2.0 Intake and Output 01/16/17 01/16/17 01/17/17 15:00 23:00 07:00 Intake Total 250 ml 1400 ml Output Total 1000 ml Balance 250 ml 400 ml Exam Constitutional: alert, oriented Eyes: nl sclera ENMT: mucosa pink and moist Respiratory: clear to auscultation Cardiovascular: regular rate and rhythm Gastrointestinal: non-tender, soft Results Result Diagram: 01/16/1780201/16/17 08 Medications Medications Current Medications Sodium Chloride (NS) 1,000 ml @ 80 mls/hr [id number] IV Last administered on 01:31; Admin Dose 80 MLS/HR; Start 01/13/17 at 19:50 Oxycodone HCl (Roxicodone) 20 mg Q3H PRN PO PAIN LEVEL 8-10 Last administered on 01/16/17 19:59; Admin Dose 20 MG; Start 01/13/17 at 20:00 Oxycodone HCl (Roxicodone) 10 mg Q3H PRN PO PAIN LEVEL 4-7 Last administered on 01/17/17 04:31; Admin Dose 10 MG; Start 01/13/17 at 20:00 Oxycodone HCl (Roxicodone) 5 mg Q3H PRN PO PAIN LEVEL 1-3; Start 01/13/17 at 20:00 Zolpidem Tartrate (Ambien) 5 mg HS PRN PO INSOMNIA; Start 01/13/17 at 20:00 Aspirin (Ecotrin) 325 mg DAILY PO Last administered on 01/16/17 08:54; Admin Dose 325 MG; Start 01/14/17 at 09:00 Celecoxib (Celebrex) 100 mg BID PO Last administered on 01/16/17 21:06; Admin Dose 100 MG; Start 01/14/17 at 08:30 Pantoprazole (Protonix Tab) 40 mg DAILY@06 PO Last administered on 01/17/17 06:52; Admin Dose 40 MG; Start 01/15/17 at 06:00 Docusate Sodium/ Ferrous Fumarate (Manda-Sequels) 1 tab BID PO Last administered on 01/16/17 08:54; Admin Dose 1 TAB; Start 01/14/17 at 09:00 Docusate Sodium (Colace) 200 mg BID PO Last administered on 01/16/17 21:06; Admin Dose 200 MG; Start 01/14/17 at 09:00; Stop 01/17/17 at 08:59 Simethicone (Mylicon) 80 mg TID PRN PO DISTENSION/GAS/BLOATING; Start at 20:00 Senna/Docusate Sodium (Senokot-S) 2 tab BID PRN PO CONSTIPATION; Start at 20:00 Magnesium Hydroxide (Milk Of Mag) 30 ml HS PRN PO CONSTIPATION; Start at 20:00 Bisacodyl (Dulcolax Supp) 10 mg DAILY PRN [place] CONSTIPATION; Start 01/13/17 at 20:00 Sodium Biphosphate/ Sodium Phosphate (Fleet Enema) 133 ml DAILY PRN [place] CONSTIPATION; Start 01/13/17 at 20:00 Diphenhydramine HCl (Benadryl) 25 mg Q4H PRN IM ITCHING OR RASH Last administered on 01/16/17 19:58; Admin Dose 25 MG; Start 01/13/17 at 20:00 Naloxone HCl (Narcan) 0.2 mg Q2M PRN IV DECREASED REPIRATORY RATE; Start at 20:00 Tramadol HCl (Ultram) 50 mg Q6H PRN PO PAIN Last administered on 01/16/17 12: 04; Admin Dose 50 MG; Start 01/13/17 at 20:00 Ciprofloxacin (Cipro) 500 mg BID@06,18 PO Last administered on 01/17/17 06:52 ; Admin Dose 500 MG; Start 01/14/17 at 18:00 Lactobacillus Acidophilus 1 each 1 each BID PO Last administered on 01/16/17 21:06; Admin Dose 1 EACH; Start 01/14/17 at 09:00 Vancomycin HCl/ Sodium Chloride (Vancocin/NS) 250 ml @ 83.333 mls/ hr Q24H IVPB Last administered on 01/16/17 09:45; Admin Dose 83.333 MLS/HR; Start at 10:00 Thyroid ([place] Thyroid) 120 mg DAILY PO Last administered on 01/16/17 08:54 ; Admin Dose 120 MG; Start 01/14/17 at 14:00 Miscellaneous Information (*Rx Drug Level Order Reminder*) VANCO TROUGH @ 0, 900 ON ... ONCE ONCE XX ; Start 01/17/17 at 09:00; Stop 01/17/17 at 09:01 ADARSH CAZARES MD Jan 17, 2017 08:16
[2017-01-17] MEDS: L ACIDOPHIL/B LACTIS/B LONGUM CAPSULE PO SCH ×2 (08:45→21:30)
[2017-01-17] MEDS: CELECOXIB 100 MG CAP PO SCH ×2 (08:45→21:29)
[2017-01-17] MEDS: FERROUS FUMARATE (SR) TAB PO SCH ×2 (08:45→21:00)
[2017-01-17] MEDS: ASPIRIN (EC) 325 MG TAB PO SCH (08:45)
[2017-01-17] MEDS: THYROID 60 MG TAB PO SCH (08:45)
[2017-01-17 09:17] LABS: BASOPHILS % 0.5 % (0.0-2.0); EOSINOPHILS # 0.3 10^3/ul (0.0-0.5); HEMATOCRIT 26.5 % (37.0-47.0); HEMOGLOBIN 8.8 g/dl (12.0-16.0); LYMPHOCYTES % 37.8 % (15.0-51.0); MEAN CORPUSCULAR HEMOGLOBIN 29.9 pg (29.0-33.0); MEAN CORPUSCULAR HGB CONC 33.2 g/dl (32.0-37.0); MEAN CORPUSCULAR VOLUME 90.1 fl (82.0-101.0); MEAN PLATELET VOLUME 11.5 fl (7.4-10.4); MONOCYTE # 0.5 10^3/ul (0.3-0.9); MONOCYTES % 6.9 % (0.0-11.0); NEUTROPHILS % 50.4 % (39.0-77.0); PLATELET COUNT 191 10^3/UL (140-415); RED BLOOD COUNT 2.94 10^6/ul (4.20-5.40); RED CELL DISTRIBUTION WIDTH 13.2 % (11.5-14.5); WHITE BLOOD COUNT 7.8 10^3/ul (4.8-10.8)
[2017-01-17 09:24] LABS: CALCIUM 8.4 mg/dl (8.4-10.2); CREATININE 0.7 mg/dl (0.44-1.00)
[2017-01-17] MEDS: VANCOMYCIN 1.5 GM in SOD CHLORIDE 0.9% 250 ML IVPB SCH (09:38)
--- NOTE | 2017-01-17 10:38 | CONS ---
Date/Time of Note Date/Time of Note DATE: 01/17/17 TIME: 10:33 Assessment/Plan Assessment/Plan Problems: (1) Hypothyroidism Status: Chronic Comment: Cont. LT4 (2) GERD (gastroesophageal reflux disease) Status: Chronic Comment: Cont. PPI (3) Personal history of DVT (deep vein thrombosis) Status: Chronic Comment: Pt. has IVC filter. RLE CRYSTAL (-) for DVT (4) Localized edema Status: Acute Comment: Pt. c/o extensive edema but not obvious on physical exam. Rec. BLE elevation during treatment to clear excess fluid from the tissues (5) Postoperative anemia Status: Acute Comment: Stable and even improved vs. yesterday (6) Infection of total right knee replacement Status: Acute Comment: Cultures all (-). Defer to ID for this. Will likely require 6 weeks IV abx at home after d/c (7) Aftercare following right knee joint replacement surgery Status: Acute Comment: Doing well POD#4. Ambulating. Cont. current care. Consultation Date/Type/Reason Admit Date/Time Jan 13, 2017 at 12:18 Initial Consult Date 01/14/17 Type of Consultation: Medicine Reason for Consultation Medical Management Referring Provider: HO MATA 24 HR Interval Summary Constitutional: improved (ambulating), no complaints Detailed Summary Respiratory: no complaints Cardiovascular: edema (BLE, R > L) Gastrointestinal: no complaints Genitourinary: no complaints Musculoskeletal: bone/joint pain (R knee), swelling (BLE, R > L) Neurologic: no complaints Exam/Review of Systems Vital Signs Vitals VS - Last 72 Hours, by Label Date Time Temp Pulse Resp B/P Pulse Ox O2 Delivery O2 Flow Rate FiO2 01/17/17 07:52 98.0 82 18 107/59 96 01/16/17 20:15 97.9 89 22 119/59 100 01/16/17 08:32 97.7 60 18 118/61 92 01/15/17 20:31 98.2 70 20 123/77 97 01/15/17 08:41 97.5 79 18 101/52 99 01/15/17 01:59 98.3 73 18 118/56 96 01/14/17 15:16 97.6 89 20 107/55 96 Vital Signs Date Time Temp Pulse Resp B/P Pulse Ox O2 Delivery O2 Flow Rate FiO2 01/17/17 07:52 98.0 82 18 107/59 96 01/14/17 02:15 Nasal Cannula 01/13/17 22:01 2.0 Intake and Output 01/16/17 01/16/17 01/17/17 15:00 23:00 07:00 Intake Total 250 ml 1400 ml Output Total 1000 ml Balance 250 ml 400 ml Exam Constitutional: alert, obese, oriented Psych: nl mood/affect, no complaints Respiratory: clear to auscultation, normal air movement Cardiovascular: edema (1+ BLE), nl pulses, regular rate and rhythm, No murmurs/extra sounds, No rub Gastrointestinal: bowel sounds, nl liver, spleen, non-tender, soft, No mass, No rebound or guarding Musculoskeletal: nl extremities to inspection Extremities: edema (1+ BLE), normal pulses, No clubbing, No cyanosis Neurological: PREPLEATER II-XII intact, nl mental status, nl speech, nl strength Results Result Diagram: 01/17/1758 01/17/17 0858 Results 24 hrs Laboratory Tests Test 01/17/17 08:58 White Blood Count 7.8 Red Blood Count 2.94 L Hemoglobin 8.8 L Hematocrit 26.5 L Mean Corpuscular Volume 90.1 Mean Corpuscular Hemoglobin 29.9 Mean Corpuscular Hemoglobin Concent 33.2 Red Cell Distribution Width 13.2 Platelet Count 191 # Mean Platelet Volume 11.5 H Neutrophils % 50.4 Lymphocytes % 37.8 Monocytes % 6.9 Eosinophils % 4.0 Basophils % 0.5 Nucleated Red Blood Cells % 0.0 Neutrophils # 4.0 Lymphocytes # 3.0 H Monocytes # 0.5 Eosinophils # 0.3 Basophils # 0.0 Nucleated Red Blood Cells # 0.0 Sodium Level 137 Potassium Level 4.0 Chloride Level 99 Carbon Dioxide Level 30 Anion Gap 12 Blood Urea Nitrogen 15 Creatinine 0.70 Glucose Level 90 Calcium Level 8.4 Vancomycin Level Trough 6.9 L Medications Medications Current Medications Sodium Chloride (NS) 1,000 ml @ 80 mls/hr [id number] IV Last administered on 01:31; Admin Dose 80 MLS/HR; Start 01/13/17 at 19:50 Oxycodone HCl (Roxicodone) 20 mg Q3H PRN PO PAIN LEVEL 8-10 Last administered on 01/17/17 08:46; Admin Dose 20 MG; Start 01/13/17 at 20:00 Oxycodone HCl (Roxicodone) 10 mg Q3H PRN PO PAIN LEVEL 4-7 Last administered on 01/17/17 04:31; Admin Dose 10 MG; Start 01/13/17 at 20:00 Oxycodone HCl (Roxicodone) 5 mg Q3H PRN PO PAIN LEVEL 1-3; Start 01/13/17 at 20:00 Zolpidem Tartrate (Ambien) 5 mg HS PRN PO INSOMNIA; Start 01/13/17 at 20:00 Aspirin (Ecotrin) 325 mg DAILY PO Last administered on 01/17/17 08:45; Admin Dose 325 MG; Start 01/14/17 at 09:00 Celecoxib (Celebrex) 100 mg BID PO Last administered on 01/17/17 08:45; Admin Dose 100 MG; Start 01/14/17 at 08:30 Pantoprazole (Protonix Tab) 40 mg DAILY@06 PO Last administered on 01/17/17 06:52; Admin Dose 40 MG; Start 01/15/17 at 06:00 Docusate Sodium/ Ferrous Fumarate (Manda-Sequels) 1 tab BID PO Last administered on 01/17/17 08:45; Admin Dose 1 TAB; Start 01/14/17 at 09:00 Simethicone (Mylicon) 80 mg TID PRN PO DISTENSION/GAS/BLOATING; Start at 20:00 Senna/Docusate Sodium (Senokot-S) 2 tab BID PRN PO CONSTIPATION; Start at 20:00 Magnesium Hydroxide (Milk Of Mag) 30 ml HS PRN PO CONSTIPATION; Start at 20:00 Bisacodyl (Dulcolax Supp) 10 mg DAILY PRN [place] CONSTIPATION; Start 01/13/17 at 20:00 Sodium Biphosphate/ Sodium Phosphate (Fleet Enema) 133 ml DAILY PRN [place] CONSTIPATION; Start 01/13/17 at 20:00 Diphenhydramine HCl (Benadryl) 25 mg Q4H PRN IM ITCHING OR RASH Last administered on 01/16/17 19:58; Admin Dose 25 MG; Start 01/13/17 at 20:00 Naloxone HCl (Narcan) 0.2 mg Q2M PRN IV DECREASED REPIRATORY RATE; Start at 20:00 Tramadol HCl (Ultram) 50 mg Q6H PRN PO PAIN Last administered on 01/16/17 12: 04; Admin Dose 50 MG; Start 01/13/17 at 20:00 Ciprofloxacin (Cipro) 500 mg BID@06,18 PO Last administered on 01/17/17 06:52 ; Admin Dose 500 MG; Start 01/14/17 at 18:00 Lactobacillus Acidophilus 1 each 1 each BID PO Last administered on 01/17/17 08:45; Admin Dose 1 EACH; Start 01/14/17 at 09:00 Vancomycin HCl/ Sodium Chloride (Vancocin/NS) 250 ml @ 83.333 mls/ hr Q24H IVPB Last administered on 01/17/17 09:38; Admin Dose 83.333 MLS/HR; Start at 10:00; Stop 01/17/17 at 13:00 Thyroid 120 mg 120 mg DAILY PO Last administered on 01/17/17 08:45; Admin Dose 120 MG; Start 01/14/17 at 14:00 Vancomycin HCl/ Sodium Chloride (Vancocin/NS) 250 ml @ 83.333 mls/ hr Q12H IVPB ; Start 01/17/17 at 22:00 SHIRA GALVAN MD Jan 17, 2017 10:38
[2017-01-17] MEDS: SOD CHLORIDE 0.9% 1,000 ML IV SCH ×2 (11:20→23:50)
[2017-01-17 14:00] VITALS: BP 121/56; RESP 18
[2017-01-17] MEDS: DIPHENHYDRAMINE 50 MG INJ IM PRN (15:43)
[2017-01-17 20:00] VITALS: BP 122/73; RESP 18
[2017-01-17] MEDS ORDERED: VANCOMYCIN 1.25 GM in SOD CHLORIDE 0.9% 250 ML IVPB SCH (22:00)
[2017-01-18] MEDS: oxyCODONE 5 MG TAB PO PRN ×4 (06:14→19:06)
[2017-01-18] MEDS: PANTOPRAZOLE (EC) 40 MG TAB PO SCH (06:14)
[2017-01-18] MEDS: CIPROFLOXACIN 500 MG TAB PO SCH ×2 (06:14→18:18)
[2017-01-18] MEDS: DIPHENHYDRAMINE 50 MG INJ IM PRN (06:14)
[2017-01-18] MEDS: THYROID 60 MG TAB PO SCH (06:17)
[2017-01-18] MEDS: ASPIRIN (EC) 325 MG TAB PO SCH (08:32)
[2017-01-18] MEDS: CELECOXIB 100 MG CAP PO SCH ×2 (08:32→20:37)
[2017-01-18] MEDS: VANCOMYCIN 1.25 GM in SOD CHLORIDE 0.9% 250 ML IVPB SCH ×2 (08:33→20:03)
[2017-01-18] MEDS: L ACIDOPHIL/B LACTIS/B LONGUM CAPSULE PO SCH ×2 (08:33→20:37)
[2017-01-18 08:51] VITALS: BP 125/65; RESP 18
[2017-01-18 08:59] LABS: BASOPHILS % 0.4 % (0.0-2.0); EOSINOPHILS # 0.3 10^3/ul (0.0-0.5); EOSINOPHILS % 4.5 % (0.0-7.0); HEMATOCRIT 25.4 % (37.0-47.0); HEMOGLOBIN 8.5 g/dl (12.0-16.0); LYMPHOCYTES # 2.5 10^3/ul (0.8-2.9); LYMPHOCYTES % 36.5 % (15.0-51.0); MEAN CORPUSCULAR HGB CONC 33.5 g/dl (32.0-37.0); MEAN CORPUSCULAR VOLUME 89.8 fl (82.0-101.0); MEAN PLATELET VOLUME 11.1 fl (7.4-10.4); MONOCYTE # 0.5 10^3/ul (0.3-0.9); NEUTROPHIL # 3.4 10^3/ul (1.6-7.5); NEUTROPHILS % 50.2 % (39.0-77.0); PLATELET COUNT 203 10^3/UL (140-415); RED BLOOD COUNT 2.83 10^6/ul (4.20-5.40); RED CELL DISTRIBUTION WIDTH 13.2 % (11.5-14.5); WHITE BLOOD COUNT 6.7 10^3/ul (4.8-10.8)
[2017-01-18] MEDS: FERROUS FUMARATE (SR) TAB PO SCH ×3 (09:00→20:39)
[2017-01-18 09:19] LABS: CALCIUM 8.5 mg/dl (8.4-10.2); CREATININE 0.63 mg/dl (0.44-1.00)
--- NOTE | 2017-01-18 10:41 | CONS ---
Date/Time of Note Date/Time of Note DATE: 01/18/17 TIME: 10:37 Assessment/Plan Assessment/Plan Problems: (1) Localized edema Status: Acute Comment: Cont. BLE elevation (2) Hypothyroidism Status: Chronic Comment: Cont. thyroid hormone replacement (3) GERD (gastroesophageal reflux disease) Status: Chronic Comment: Cont. PPI (4) Personal history of DVT (deep vein thrombosis) Status: Chronic Comment: IVC filter in place and no recurrence on recent CRYSTAL (5) Infection of total right knee replacement Status: Acute Comment: Cultures all NGTD. ID awaiting possible growth of less pathogenic organisms that may grow in the next 14 days. Will not keep pt. in hospital. Pt. to be d/c'ed home tomorrow w/ 6 weeks or IV vanco and oral cipro (6) Postoperative anemia Status: Acute Comment: Stable. Cont. Fe (7) Aftercare following right knee joint replacement surgery Status: Acute Comment: Doing well. Likely d/c home tomorrow when vanco available through home health Consultation Date/Type/Reason Admit Date/Time Jan 13, 2017 at 12:18 Initial Consult Date 01/14/17 Type of Consultation: Medicine Reason for Consultation Medical management Referring Provider: HO MATA 24 HR Interval Summary Constitutional: improved, no complaints Detailed Summary Respiratory: no complaints Cardiovascular: edema (BLE still swollen but improved w/ elevation) Gastrointestinal: no complaints Genitourinary: no complaints Musculoskeletal: no complaints, No bone/joint pain Neurologic: no complaints Exam/Review of Systems Vital Signs Vitals VS - Last 72 Hours, by Label Date Time Temp Pulse Resp B/P Pulse Ox O2 Delivery O2 Flow Rate FiO2 01/18/17 08:51 98.7 79 18 125/65 96 01/17/17 20:00 97.8 88 18 122/73 96 01/17/17 14:00 97.8 85 18 121/56 95 01/17/17 07:52 98.0 82 18 107/59 96 01/16/17 20:15 97.9 89 22 119/59 100 01/16/17 08:32 97.7 60 18 118/61 92 01/15/17 20:31 98.2 70 20 123/77 97 Vital Signs Date Time Temp Pulse Resp B/P Pulse Ox O2 Delivery O2 Flow Rate FiO2 01/18/17 08:51 98.7 79 18 125/65 96 Intake and Output 01/17/17 01/17/17 01/18/17 15:00 23:00 07:00 Intake Total 650 ml 1200 ml 250 ml Output Total 900 ml Balance 650 ml 300 ml 250 ml Exam Constitutional: alert, obese, oriented Psych: nl mood/affect, no complaints Respiratory: clear to auscultation, normal air movement Cardiovascular: edema (tr edema RLE), nl pulses, regular rate and rhythm, No murmurs/extra sounds, No rub Gastrointestinal: bowel sounds, nl liver, spleen, non-tender, soft, No mass, No rebound or guarding Musculoskeletal: nl extremities to inspection Extremities: edema (tr edema RLE), normal pulses, No clubbing, No cyanosis Neurological: BLACKENER II-XII intact, nl mental status, nl speech, nl strength Results Result Diagram: 01/18/17 0847 01/18/17 0847 Results 24 hrs Laboratory Tests Test 01/18/17 08:47 White Blood Count 6.7 Red Blood Count 2.83 L Hemoglobin 8.5 L Hematocrit 25.4 L Mean Corpuscular Volume 89.8 Mean Corpuscular Hemoglobin 30.0 Mean Corpuscular Hemoglobin Concent 33.5 Red Cell Distribution Width 13.2 Platelet Count 203 Mean Platelet Volume 11.1 H Neutrophils % 50.2 Lymphocytes % 36.5 Monocytes % 8.0 Eosinophils % 4.5 Basophils % 0.4 Nucleated Red Blood Cells % 0.0 Neutrophils # 3.4 Lymphocytes # 2.5 Monocytes # 0.5 Eosinophils # 0.3 Basophils # 0.0 Nucleated Red Blood Cells # 0.0 Sodium Level 138 Potassium Level 4.0 Chloride Level 100 Carbon Dioxide Level 30 Anion Gap 12 Blood Urea Nitrogen 13 Creatinine 0.63 Glucose Level 96 Calcium Level 8.5 Medications Medications Current Medications Sodium Chloride (NS) 1,000 ml @ 80 mls/hr [id number] IV Last administered on 01:31; Admin Dose 80 MLS/HR; Start 01/13/17 at 19:50 Oxycodone HCl (Roxicodone) 20 mg Q3H PRN PO PAIN LEVEL 8-10 Last administered on 01/17/17 21:30; Admin Dose 20 MG; Start 01/13/17 at 20:00 Oxycodone HCl (Roxicodone) 10 mg Q3H PRN PO PAIN LEVEL 4-7 Last administered on 01/18/17 10:10; Admin Dose 10 MG; Start 01/13/17 at 20:00 Oxycodone HCl (Roxicodone) 5 mg Q3H PRN PO PAIN LEVEL 1-3; Start 01/13/17 at 20:00 Zolpidem Tartrate (Ambien) 5 mg HS PRN PO INSOMNIA; Start 01/13/17 at 20:00 Aspirin (Ecotrin) 325 mg DAILY PO Last administered on 01/18/17 08:32; Admin Dose 325 MG; Start 01/14/17 at 09:00 Celecoxib (Celebrex) 100 mg BID PO Last administered on 01/18/17 08:32; Admin Dose 100 MG; Start 01/14/17 at 08:30 Pantoprazole (Protonix Tab) 40 mg DAILY@06 PO Last administered on 01/18/17 06:14; Admin Dose 40 MG; Start 01/15/17 at 06:00 Docusate Sodium/ Ferrous Fumarate (Manda-Sequels) 1 tab BID PO Last administered on 01/17/17 08:45; Admin Dose 1 TAB; Start 01/14/17 at 09:00 Simethicone (Mylicon) 80 mg TID PRN PO DISTENSION/GAS/BLOATING; Start at 20:00 Senna/Docusate Sodium (Senokot-S) 2 tab BID PRN PO CONSTIPATION; Start at 20:00 Magnesium Hydroxide (Milk Of Mag) 30 ml HS PRN PO CONSTIPATION; Start at 20:00 Bisacodyl (Dulcolax Supp) 10 mg DAILY PRN [place] CONSTIPATION; Start 01/13/17 at 20:00 Sodium Biphosphate/ Sodium Phosphate (Fleet Enema) 133 ml DAILY PRN [place] CONSTIPATION; Start 01/13/17 at 20:00 Diphenhydramine HCl (Benadryl) 25 mg Q4H PRN IM ITCHING OR RASH Last administered on 01/18/17 06:14; Admin Dose 25 MG; Start 01/13/17 at 20:00 Naloxone HCl (Narcan) 0.2 mg Q2M PRN IV DECREASED REPIRATORY RATE; Start at 20:00 Tramadol HCl (Ultram) 50 mg Q6H PRN PO PAIN Last administered on 01/16/17 12: 04; Admin Dose 50 MG; Start 01/13/17 at 20:00 Ciprofloxacin (Cipro) 500 mg BID@06,18 PO Last administered on 01/18/17 06:14 ; Admin Dose 500 MG; Start 01/14/17 at 18:00 Lactobacillus Acidophilus (Florajen3 Capsule) 1 each BID PO Last administered on 01/18/17 08:33; Admin Dose 1 EACH; Start 01/14/17 at 09:00 Thyroid 120 mg 120 mg DAILY PO Last administered on 01/18/17 06:17; Admin Dose 120 MG; Start 01/14/17 at 14:00 Vancomycin HCl/ Sodium Chloride (Vancocin/NS) 250 ml @ 83.333 mls/ hr Q12H IVPB Last administered on 01/18/17 08:33; Admin Dose 83.333 MLS/HR; Start at 08:00 SHIRA GALVAN MD Jan 18, 2017 10:41
[2017-01-18] MEDS: SOD CHLORIDE 0.9% 1,000 ML IV SCH (12:20)
[2017-01-18 20:03] VITALS: BP 129/61; RESP 18
[2017-01-19] MEDS: SOD CHLORIDE 0.9% 1,000 ML IV SCH ×2 (00:17→13:20)
[2017-01-19 01:54] VITALS: BP 113/55; RESP 18
[2017-01-19] MEDS: CIPROFLOXACIN 500 MG TAB PO SCH ×2 (06:01→17:53)
[2017-01-19] MEDS: PANTOPRAZOLE (EC) 40 MG TAB PO SCH (06:03)
--- NOTE | 2017-01-19 07:58 | PN ---
Date/Time of Note Date/Time of Note DATE: 01/19/17 TIME: 07:56 Assessment/Plan VTE Prophylaxis VTE Prophylaxis Intervention: ambulation, SCD's, other (Aspirin 325 mg) Lines/Catheters IV Catheter Type (from Nrsg): PORTACATH Cabrales in Place (from Nrsg): No Assessment/Plan Assessment/Plan -Pain Meds as needed -ASA for DVT Prophylaxis x 4 weeks outpatient discussed. -Continue monitoring as outpatient on discharge -Follow-up at scheduled postop outpatient appointment or sooner if there is any issue. -Patient Stable -Discharge to Home with home health as they are preparing home health nurse that can administer vancomycin transfusion status post total knee revision due to joint infection. Subjective 24 Hr Interval Summary 66-year-old female postop day 6 status post right stage I total knee revision. Patient states that pain is significantly improved. She continues with stiffness but has been performing physical therapy in regards to weightbearing. She denies any calf pain, chest pain or tightness. Recent venous Doppler was negative for acute DVT. Resting comfortably in bed now. Pain Control: well controlled Exam/Review of Systems Vital Signs Vitals Vital Signs Date Time Temp Pulse Resp B/P Pulse Ox O2 Delivery O2 Flow Rate FiO2 01/19/17 01:54 97.6 89 18 113/55 96 Intake and Output 01/18/17 01/18/17 01/19/17 15:00 23:00 07:00 Intake Total 250 ml 1300 ml 1050 ml Balance 250 ml 1300 ml 1050 ml Exam Free Text/Dictation -No complications with dressing intact. -5/5 Tibialis Anterior, EHL Gastrocnemius/Soleus and Peroneals -Normal Sensation -Palpable DP/PT, Capillary Refill <2 secs -No Distal Edema -Negative Justa Sign/No calf pain -Toes Freely Movable Constitutional: alert, oriented, well developed Results Result Diagram: 01/18/17 0847 01/18/17 0847 PATRICK TIJERINA PA-C Jan 19, 2017 07:58
--- NOTE | 2017-01-19 08:21 | CONS ---
Date/Time of Note Date/Time of Note DATE: 01/19/17 TIME: 08:17 Assessment/Plan Assessment/Plan Chief Complaint/Hosp Course 1) S/p removal of hardware for presumed infection of the R knee she had a prior aspiration of the joint fluid which did not grow any organisms She is reported to have elevated ESR I have contacted the PA, Quirino Galloway to get results of the knee fluid cell count will start IV vanco with po cipro and anticipate a 6 week course followed by po antibiotics for an extended period she will be on probiotics while on antibiotics Case management referral has been made for home IV vanco pt already has a port placed in anticipation for home IV antibiotics. I will order ESR and CRP for tomorrow to get a baseline reading and follow on a weekly basis. 01/15 - await ESR, CRP pt is on 1.5gm of IV vanco q24 hours with po cipro current cx are all NGTD 01/17 - knee cx were neg for bacteria will ask micro to hold onto the cultures for 14 days as some less pathogenic organisms take longer to grow if home health can start on thursday and be present for her 10a.m. dose then pt can leave on thursday after her 10a.m. dose here will follow weekly her cbc, bmp, esr, crp and vanco trough as outpt (home health will draw labs and fax them to my office) 01/19 - pt to get vanco trough this a.m. and to determine final vanco dosing currently at 1.25gm q12 hours continue vanco/cipro thru 02/25/17 this will be followed by po antibiotics for 2- 6 months 2) hypothyroidism 3)hx of DVT with IVC filter Problems: Consultation Date/Type/Reason Admit Date/Time Jan 13, 2017 at 12:18 Initial Consult Date 01/14/17 Type of Consultation: Medicine Referring Provider: HO MATA 24 HR Interval Summary Free Text/Dictation doing well no N, V, D pain is better Exam/Review of Systems Vital Signs Vitals Vital Signs Date Time Temp Pulse Resp B/P Pulse Ox O2 Delivery O2 Flow Rate FiO2 01/19/17 01:54 97.6 89 18 113/55 96 Intake and Output 01/18/17 01/18/17 01/19/17 14:59 22:59 06:59 Intake Total 250 ml 1300 ml 1050 ml Balance 250 ml 1300 ml 1050 ml Exam Constitutional: alert, oriented Eyes: nl sclera ENMT: mucosa pink and moist Respiratory: clear to auscultation Cardiovascular: regular rate and rhythm Gastrointestinal: non-tender, soft Extremities: other (small bandage over surgical site, no redness surrounding it ) Results Result Diagram: 01/18/17 0847 01/18/17 0847 Results 24 hrs Laboratory Tests Test 01/18/17 08:47 White Blood Count 6.7 Red Blood Count 2.83 L Hemoglobin 8.5 L Hematocrit 25.4 L Mean Corpuscular Volume 89.8 Mean Corpuscular Hemoglobin 30.0 Mean Corpuscular Hemoglobin Concent 33.5 Red Cell Distribution Width 13.2 Platelet Count 203 Mean Platelet Volume 11.1 H Neutrophils % 50.2 Lymphocytes % 36.5 Monocytes % 8.0 Eosinophils % 4.5 Basophils % 0.4 Nucleated Red Blood Cells % 0.0 Neutrophils # 3.4 Lymphocytes # 2.5 Monocytes # 0.5 Eosinophils # 0.3 Basophils # 0.0 Nucleated Red Blood Cells # 0.0 Sodium Level 138 Potassium Level 4.0 Chloride Level 100 Carbon Dioxide Level 30 Anion Gap 12 Blood Urea Nitrogen 13 Creatinine 0.63 Glucose Level 96 Calcium Level 8.5 Medications Medications Current Medications Sodium Chloride (NS) 1,000 ml @ 80 mls/hr [id number] IV Last administered on 01:31; Admin Dose 80 MLS/HR; Start 01/13/17 at 19:50 Oxycodone HCl (Roxicodone) 20 mg Q3H PRN PO PAIN LEVEL 8-10 Last administered on 01/18/17 19:06; Admin Dose 20 MG; Start 01/13/17 at 20:00 Oxycodone HCl (Roxicodone) 10 mg Q3H PRN PO PAIN LEVEL 4-7 Last administered on 01/18/17 16:00; Admin Dose 10 MG; Start 01/13/17 at 20:00 Oxycodone HCl (Roxicodone) 5 mg Q3H PRN PO PAIN LEVEL 1-3; Start 01/13/17 at 20:00 Zolpidem Tartrate (Ambien) 5 mg HS PRN PO INSOMNIA; Start 01/13/17 at 20:00 Aspirin (Ecotrin) 325 mg DAILY PO Last administered on 01/18/17 08:32; Admin Dose 325 MG; Start 01/14/17 at 09:00 Celecoxib (Celebrex) 100 mg BID PO Last administered on 01/18/17 20:37; Admin Dose 100 MG; Start 01/14/17 at 08:30 Pantoprazole (Protonix Tab) 40 mg DAILY@06 PO Last administered on 01/19/17 06:03; Admin Dose 40 MG; Start 01/15/17 at 06:00 Docusate Sodium/ Ferrous Fumarate (Manda-Sequels) 1 tab BID PO Last administered on 01/17/17 08:45; Admin Dose 1 TAB; Start 01/14/17 at 09:00 Simethicone (Mylicon) 80 mg TID PRN PO DISTENSION/GAS/BLOATING; Start at 20:00 Senna/Docusate Sodium (Senokot-S) 2 tab BID PRN PO CONSTIPATION; Start at 20:00 Magnesium Hydroxide (Milk Of Mag) 30 ml HS PRN PO CONSTIPATION; Start at 20:00 Bisacodyl (Dulcolax Supp) 10 mg DAILY PRN [place] CONSTIPATION; Start 01/13/17 at 20:00 Sodium Biphosphate/ Sodium Phosphate (Fleet Enema) 133 ml DAILY PRN [place] CONSTIPATION; Start 01/13/17 at 20:00 Diphenhydramine HCl (Benadryl) 25 mg Q4H PRN IM ITCHING OR RASH Last administered on 01/18/17 06:14; Admin Dose 25 MG; Start 01/13/17 at 20:00 Naloxone HCl (Narcan) 0.2 mg Q2M PRN IV DECREASED REPIRATORY RATE; Start at 20:00 Tramadol HCl (Ultram) 50 mg Q6H PRN PO PAIN Last administered on 01/16/17 12: 04; Admin Dose 50 MG; Start 01/13/17 at 20:00 Ciprofloxacin (Cipro) 500 mg BID@06,18 PO Last administered on 01/19/17 06:01 ; Admin Dose 500 MG; Start 01/14/17 at 18:00 Lactobacillus Acidophilus (Florajen3 Capsule) 1 each BID PO Last administered on 01/18/17 20:37; Admin Dose 1 EACH; Start 01/14/17 at 09:00 Thyroid 120 mg 120 mg DAILY PO Last administered on 01/18/17 06:17; Admin Dose 120 MG; Start 01/14/17 at 14:00 Vancomycin HCl/ Sodium Chloride (Vancocin/NS) 250 ml @ 83.333 mls/ hr Q12H IVPB Last administered on 01/18/17 20:03; Admin Dose 83.333 MLS/HR; Start at 08:00 ADARSH CAZARES MD Jan 19, 2017 08:21
[2017-01-19 08:30] VITALS: BP 116/58; RESP 18
[2017-01-19] MEDS: FERROUS FUMARATE (SR) TAB PO SCH ×2 (09:00→20:16)
[2017-01-19] MEDS: ASPIRIN (EC) 325 MG TAB PO SCH (09:12)
[2017-01-19] MEDS: CELECOXIB 100 MG CAP PO SCH ×2 (09:12→21:08)
[2017-01-19] MEDS: L ACIDOPHIL/B LACTIS/B LONGUM CAPSULE PO SCH ×2 (09:13→20:16)
[2017-01-19] MEDS: THYROID 60 MG TAB PO SCH (09:13)
[2017-01-19] MEDS: oxyCODONE 5 MG TAB PO PRN ×4 (09:13→21:08)
[2017-01-19 09:29] LABS: BASOPHILS % 0.5 % (0.0-2.0); EOSINOPHILS # 0.3 10^3/ul (0.0-0.5); HEMATOCRIT 25.4 % (37.0-47.0); HEMOGLOBIN 8.4 g/dl (12.0-16.0); LYMPHOCYTES # 2.6 10^3/ul (0.8-2.9); LYMPHOCYTES % 35.4 % (15.0-51.0); MEAN CORPUSCULAR HGB CONC 33.1 g/dl (32.0-37.0); MEAN CORPUSCULAR VOLUME 90.7 fl (82.0-101.0); MEAN PLATELET VOLUME 11.1 fl (7.4-10.4); MONOCYTE # 0.7 10^3/ul (0.3-0.9); MONOCYTES % 9.2 % (0.0-11.0); NEUTROPHIL # 3.7 10^3/ul (1.6-7.5); NEUTROPHILS % 50.4 % (39.0-77.0); PLATELET COUNT 212 10^3/UL (140-415); RED CELL DISTRIBUTION WIDTH 13.3 % (11.5-14.5); WHITE BLOOD COUNT 7.3 10^3/ul (4.8-10.8)
[2017-01-19 10:03] LABS: CALCIUM 8.4 mg/dl (8.4-10.2); CREATININE 0.76 mg/dl (0.44-1.00); POTASSIUM 3.9 mmol/L (3.5-5.1)
[2017-01-19] MEDS: traMADol 50 MG TAB PO PRN (13:43)
[2017-01-19] MEDS: VANCOMYCIN 1.5 GM in SOD CHLORIDE 0.9% 250 ML IVPB SCH (15:29)
[2017-01-19 16:00] VITALS: BP 136/73; RESP 18
--- NOTE | 2017-01-19 17:31 | CONS ---
Date/Time of Note Date/Time of Note DATE: 01/19/17 TIME: 17:27 Assessment/Plan Assessment/Plan Problems: (1) Hypothyroidism Status: Chronic Comment: Cont. LT4 at current dosage (2) GERD (gastroesophageal reflux disease) Status: Chronic Comment: Cont. pantoprazole (3) Personal history of DVT (deep vein thrombosis) Status: Chronic Comment: Has IVC filter (4) Infection of total right knee replacement Status: Acute Comment: Cont. IV vanco and po cipro per ID. Will need for 6 weeks. Arranging vanco through home health (5) Postoperative anemia Status: Acute Comment: stable, not worsening. Cont. Fe (6) Localized edema Status: Acute Comment: Cont. elevation of RLE (7) Aftercare following right knee joint replacement surgery Status: Acute Comment: Doing well post-op. Ambulating and pain mostly controlled. Ready for d/c when HHN set up Consultation Date/Type/Reason Admit Date/Time Jan 13, 2017 at 12:18 Initial Consult Date 01/14/17 Type of Consultation: Medicine Reason for Consultation Medical Management Referring Provider: HO MATA 24 HR Interval Summary Constitutional: improved, no complaints Detailed Summary Respiratory: no complaints Cardiovascular: edema (mild but feels a little worse than yesterday) Gastrointestinal: no complaints Genitourinary: no complaints Musculoskeletal: bone/joint pain (R knee) Neurologic: no complaints Psychological: depression (upset b/c thought she was going home today but will have to be tomorrow.) Exam/Review of Systems Vital Signs Vitals VS - Last 72 Hours, by Label Date Time Temp Pulse Resp B/P Pulse Ox O2 Delivery O2 Flow Rate FiO2 01/19/17 08:30 97.8 85 18 116/58 98 01/19/17 01:54 97.6 89 18 113/55 96 01/18/17 20:03 97.5 92 18 129/61 95 01/18/17 08:51 98.7 79 18 125/65 96 01/17/17 20:00 97.8 88 18 122/73 96 01/17/17 14:00 97.8 85 18 121/56 95 01/17/17 07:52 98.0 82 18 107/59 96 01/16/17 20:15 97.9 89 22 119/59 100 Vital Signs Date Time Temp Pulse Resp B/P Pulse Ox O2 Delivery O2 Flow Rate FiO2 01/19/17 08:30 97.8 85 18 116/58 98 Intake and Output 01/18/17 01/18/17 01/19/17 15:00 23:00 07:00 Intake Total 250 ml 1300 ml 1050 ml Balance 250 ml 1300 ml 1050 ml Exam Constitutional: alert, obese, oriented Psych: nl mood/affect, no complaints Respiratory: clear to auscultation, normal air movement Cardiovascular: nl pulses, regular rate and rhythm, No edema, No murmurs/extra sounds, No rub Gastrointestinal: bowel sounds, nl liver, spleen, non-tender, soft, No mass, No rebound or guarding Musculoskeletal: nl extremities to inspection Extremities: normal pulses, No clubbing, No cyanosis, No edema Neurological: CONCEPT ARTIST II-XII intact, nl mental status, nl speech, nl strength Results Result Diagram: 01/19/17 0846 01/19/17 0847 Results 24 hrs Laboratory Tests Test 01/19/17 08:46 01/19/17 08:47 White Blood Count 7.3 Red Blood Count 2.80 L Hemoglobin 8.4 L Hematocrit 25.4 L Mean Corpuscular Volume 90.7 Mean Corpuscular Hemoglobin 30.0 Mean Corpuscular Hemoglobin Concent 33.1 Red Cell Distribution Width 13.3 Platelet Count 212 Mean Platelet Volume 11.1 H Neutrophils % 50.4 Lymphocytes % 35.4 Monocytes % 9.2 Eosinophils % 4.0 Basophils % 0.5 Nucleated Red Blood Cells % 0.0 Neutrophils # 3.7 Lymphocytes # 2.6 Monocytes # 0.7 Eosinophils # 0.3 Basophils # 0.0 Nucleated Red Blood Cells # 0.0 Sodium Level 137 Potassium Level 3.9 Chloride Level 100 Carbon Dioxide Level 31 Anion Gap 10 Blood Urea Nitrogen 16 Creatinine 0.76 Glucose Level 96 Calcium Level 8.4 Vancomycin Level Trough 21.4 *H Medications Medications Current Medications Sodium Chloride (NS) 1,000 ml @ 80 mls/hr [id number] IV Last administered on 01:31; Admin Dose 80 MLS/HR; Start 01/13/17 at 19:50 Oxycodone HCl (Roxicodone) 20 mg Q3H PRN PO PAIN LEVEL 8-10 Last administered on 01/19/17 16:30; Admin Dose 20 MG; Start 01/13/17 at 20:00 Oxycodone HCl (Roxicodone) 10 mg Q3H PRN PO PAIN LEVEL 4-7 Last administered on 01/19/17 11:24; Admin Dose 10 MG; Start 01/13/17 at 20:00 Oxycodone HCl (Roxicodone) 5 mg Q3H PRN PO PAIN LEVEL 1-3; Start 01/13/17 at 20:00 Zolpidem Tartrate (Ambien) 5 mg HS PRN PO INSOMNIA; Start 01/13/17 at 20:00 Aspirin (Ecotrin) 325 mg DAILY PO Last administered on 01/19/17 09:12; Admin Dose 325 MG; Start 01/14/17 at 09:00 Celecoxib (Celebrex) 100 mg BID PO Last administered on 01/19/17 09:12; Admin Dose 100 MG; Start 01/14/17 at 08:30 Pantoprazole (Protonix Tab) 40 mg DAILY@06 PO Last administered on 01/19/17 06:03; Admin Dose 40 MG; Start 01/15/17 at 06:00 Docusate Sodium/ Ferrous Fumarate (Manda-Sequels) 1 tab BID PO Last administered on 01/17/17 08:45; Admin Dose 1 TAB; Start 01/14/17 at 09:00 Simethicone (Mylicon) 80 mg TID PRN PO DISTENSION/GAS/BLOATING; Start at 20:00 Senna/Docusate Sodium (Senokot-S) 2 tab BID PRN PO CONSTIPATION; Start at 20:00 Magnesium Hydroxide (Milk Of Mag) 30 ml HS PRN PO CONSTIPATION; Start at 20:00 Bisacodyl (Dulcolax Supp) 10 mg DAILY PRN [place] CONSTIPATION; Start 01/13/17 at 20:00 Sodium Biphosphate/ Sodium Phosphate (Fleet Enema) 133 ml DAILY PRN [place] CONSTIPATION; Start 01/13/17 at 20:00 Diphenhydramine HCl (Benadryl) 25 mg Q4H PRN IM ITCHING OR RASH Last administered on 01/18/17 06:14; Admin Dose 25 MG; Start 01/13/17 at 20:00 Naloxone HCl (Narcan) 0.2 mg Q2M PRN IV DECREASED REPIRATORY RATE; Start at 20:00 Tramadol HCl (Ultram) 50 mg Q6H PRN PO PAIN Last administered on 01/19/17 13: 43; Admin Dose 50 MG; Start 01/13/17 at 20:00 Ciprofloxacin (Cipro) 500 mg BID@06,18 PO Last administered on 01/19/17 06:01 ; Admin Dose 500 MG; Start 01/14/17 at 18:00 Lactobacillus Acidophilus (Florajen3 Capsule) 1 each BID PO Last administered on 01/19/17 09:13; Admin Dose 1 EACH; Start 01/14/17 at 09:00 Thyroid 120 mg 120 mg DAILY PO Last administered on 01/19/17 09:13; Admin Dose 120 MG; Start 01/14/17 at 14:00 Vancomycin HCl/ Sodium Chloride (Vancocin/NS) 250 ml @ 83.333 mls/ hr Q24H IVPB Last administered on 01/19/17 15:29; Admin Dose 83.333 MLS/HR; Start at 15:00 SHIRA GALVAN MD Jan 19, 2017 17:31
[2017-01-19] MEDS: DIPHENHYDRAMINE 50 MG INJ IM PRN (20:16)
[2017-01-19 20:30] VITALS: BP 133/69; RESP 19
[2017-01-20] MEDS: SOD CHLORIDE 0.9% 1,000 ML IV SCH ×2 (01:50→14:20)
[2017-01-20] MEDS: DIPHENHYDRAMINE 50 MG INJ IM PRN ×2 (02:51→12:10)
[2017-01-20 02:52] VITALS: BP 126/59; RESP 19
[2017-01-20] MEDS: CIPROFLOXACIN 500 MG TAB PO SCH ×2 (05:14→18:34)
[2017-01-20] MEDS: PANTOPRAZOLE (EC) 40 MG TAB PO SCH (05:14)
[2017-01-20] MEDS ORDERED: THYROID 30 MG TAB PO SCH (06:00)
[2017-01-20] MEDS ORDERED: THYROID 60 MG TAB PO SCH ×2 (06:00)
[2017-01-20] MEDS: oxyCODONE 5 MG TAB PO PRN ×3 (06:59→18:55)
--- NOTE | 2017-01-20 07:26 | PN ---
Date/Time of Note Date/Time of Note DATE: 01/20/17 TIME: 07:25 Assessment/Plan VTE Prophylaxis VTE Prophylaxis Intervention: ambulation, SCD's, other (Aspirin 325 mg) Lines/Catheters IV Catheter Type (from Nrsg): pac Cabrales in Place (from Nrsg): No Assessment/Plan Assessment/Plan -Pain Meds as needed -ASA for DVT Prophylaxis x 4 weeks outpatient discussed. -Continue monitoring as outpatient on discharge -Follow-up at scheduled postop outpatient appointment or sooner if there is any issue. -Patient Stable -Discharge to Home with home health -Currently on vancomycin and Cipro for antibiotic coverage. Subjective 24 Hr Interval Summary 66-year-old female postop day 7 status post stage I right total knee replacement revision surgery. No acute overnight events. Continues with physical therapy. Continuing to await nurse that can perform transfusion of vancomycin while at home. Pain Control: well controlled Exam/Review of Systems Vital Signs Vitals Vital Signs Date Time Temp Pulse Resp B/P Pulse Ox O2 Delivery O2 Flow Rate FiO2 01/20/17 02:52 98.0 79 19 126/59 95 Intake and Output 01/19/17 01/19/17 01/20/17 15:00 23:00 07:00 Intake Total 1450 ml 1000 ml Balance 1450 ml 1000 ml Exam Free Text/Dictation -No complications with dressing intact. -5/5 Tibialis Anterior, EHL Gastrocnemius/Soleus and Peroneals -Normal Sensation -Palpable DP/PT, Capillary Refill <2 secs -No Distal Edema -Negative Justa Sign/No calf pain -Toes Freely Movable Results Result Diagram: 01/19/17 0846 01/19/17 0847 PATRICK TIJERINA PA-C Jan 20, 2017 07:26
[2017-01-20 08:09] VITALS: BP 113/56; RESP 20
[2017-01-20] MEDS: FERROUS FUMARATE (SR) TAB PO SCH (09:00)
[2017-01-20] MEDS: L ACIDOPHIL/B LACTIS/B LONGUM CAPSULE PO SCH (09:34)
[2017-01-20] MEDS: ASPIRIN (EC) 325 MG TAB PO SCH (09:35)
[2017-01-20] MEDS: CELECOXIB 100 MG CAP PO SCH (09:35)
[2017-01-20 09:39] LABS: BASOPHILS % 0.5 % (0.0-2.0); EOSINOPHILS # 0.2 10^3/ul (0.0-0.5); EOSINOPHILS % 2.8 % (0.0-7.0); HEMATOCRIT 26.7 % (37.0-47.0); HEMOGLOBIN 8.7 g/dl (12.0-16.0); LYMPHOCYTES % 22.5 % (15.0-51.0); MEAN CORPUSCULAR HEMOGLOBIN 29.5 pg (29.0-33.0); MEAN CORPUSCULAR HGB CONC 32.6 g/dl (32.0-37.0); MEAN CORPUSCULAR VOLUME 90.5 fl (82.0-101.0); MEAN PLATELET VOLUME 10.5 fl (7.4-10.4); MONOCYTE # 0.6 10^3/ul (0.3-0.9); MONOCYTES % 7.3 % (0.0-11.0); NEUTROPHIL # 5.8 10^3/ul (1.6-7.5); NEUTROPHILS % 66.6 % (39.0-77.0); PLATELET COUNT 228 10^3/UL (140-415); RED BLOOD COUNT 2.95 10^6/ul (4.20-5.40); RED CELL DISTRIBUTION WIDTH 13.3 % (11.5-14.5); WHITE BLOOD COUNT 8.7 10^3/ul (4.8-10.8)
[2017-01-20 10:09] LABS: CREATININE 0.64 mg/dl (0.44-1.00)
--- NOTE | 2017-01-20 12:55 | CONS ---
Date/Time of Note Date/Time of Note DATE: 01/20/17 TIME: 12:52 Assessment/Plan Assessment/Plan Problems: (1) Localized edema Status: Acute Comment: More perception than on exam. Rec. elevation when not on RLE. (2) Hypothyroidism Status: Chronic Comment: Cont. LT4 (3) GERD (gastroesophageal reflux disease) Status: Chronic Comment: Cont. PPI (4) Personal history of DVT (deep vein thrombosis) Status: Chronic Comment: Pt. has IVC filter. (5) Infection of total right knee replacement Status: Acute Comment: On cipro and vanco per ID. All cultures negative but will be extended. Defer to ID (6) Postoperative anemia Status: Acute Comment: stable. Cont. Fe (7) Aftercare following right knee joint replacement surgery Status: Acute Comment: Doing well. Ready for d/c home when HHN has IV abx ready Consultation Date/Type/Reason Admit Date/Time Jan 13, 2017 at 12:18 Initial Consult Date 01/14/17 Type of Consultation: Medicine Reason for Consultation Medical management Referring Provider: HO MATA 24 HR Interval Summary Constitutional: improved, no complaints Detailed Summary Respiratory: no complaints Cardiovascular: no complaints Gastrointestinal: no complaints Genitourinary: no complaints Musculoskeletal: bone/joint pain (R medial thigh when she is ambulating or getting in bed. Pain sharp and runs up leg.), swelling (R foot) Neurologic: no complaints Exam/Review of Systems Vital Signs Vitals VS - Last 72 Hours, by Label Date Time Temp Pulse Resp B/P Pulse Ox O2 Delivery O2 Flow Rate FiO2 01/20/17 08:09 97.4 83 20 113/56 95 01/20/17 02:52 98.0 79 19 126/59 95 01/19/17 20:30 98.7 87 19 133/69 95 01/19/17 16:00 98.3 86 18 136/73 92 01/19/17 08:30 97.8 85 18 116/58 98 01/19/17 01:54 97.6 89 18 113/55 96 01/18/17 20:03 97.5 92 18 129/61 95 01/18/17 08:51 98.7 79 18 125/65 96 01/17/17 20:00 97.8 88 18 122/73 96 01/17/17 14:00 97.8 85 18 121/56 95 Vital Signs Date Time Temp Pulse Resp B/P Pulse Ox O2 Delivery O2 Flow Rate FiO2 01/20/17 08:09 97.4 83 20 113/56 95 Intake and Output 01/19/17 01/19/17 01/20/17 15:00 23:00 07:00 Intake Total 1450 ml 1000 ml Balance 1450 ml 1000 ml Exam Constitutional: alert, obese, oriented Psych: nl mood/affect, no complaints Respiratory: clear to auscultation, normal air movement Cardiovascular: nl pulses, regular rate and rhythm, No edema, No murmurs/extra sounds, No rub Gastrointestinal: bowel sounds, nl liver, spleen, non-tender, soft, No mass, No rebound or guarding Musculoskeletal: nl extremities to inspection Extremities: normal pulses, No clubbing, No cyanosis, No edema Neurological: QUALITY CONTROL TESTER II-XII intact, nl mental status, nl speech, nl strength Results Result Diagram: 01/20/1790001/20/17 09 Results 24 hrs Laboratory Tests Test 01/20/17 09:01 White Blood Count 8.7 Red Blood Count 2.95 L Hemoglobin 8.7 L Hematocrit 26.7 L Mean Corpuscular Volume 90.5 Mean Corpuscular Hemoglobin 29.5 Mean Corpuscular Hemoglobin Concent 32.6 Red Cell Distribution Width 13.3 Platelet Count 228 Mean Platelet Volume 10.5 H Neutrophils % 66.6 Lymphocytes % 22.5 Monocytes % 7.3 Eosinophils % 2.8 Basophils % 0.5 Nucleated Red Blood Cells % 0.0 Neutrophils # 5.8 Lymphocytes # 2.0 Monocytes # 0.6 Eosinophils # 0.2 Basophils # 0.0 Nucleated Red Blood Cells # 0.0 Sodium Level 138 Potassium Level 4.0 Chloride Level 101 Carbon Dioxide Level 32 H Anion Gap 9 Blood Urea Nitrogen 15 Creatinine 0.64 Glucose Level 100 Calcium Level 9.0 Medications Medications Current Medications Sodium Chloride (NS) 1,000 ml @ 80 mls/hr [id number] IV Last administered on 01:31; Admin Dose 80 MLS/HR; Start 01/13/17 at 19:50 Oxycodone HCl (Roxicodone) 20 mg Q3H PRN PO PAIN LEVEL 8-10 Last administered on 01/20/17 06:59; Admin Dose 20 MG; Start 01/13/17 at 20:00 Oxycodone HCl (Roxicodone) 10 mg Q3H PRN PO PAIN LEVEL 4-7 Last administered on 01/19/17 11:24; Admin Dose 10 MG; Start 01/13/17 at 20:00 Oxycodone HCl (Roxicodone) 5 mg Q3H PRN PO PAIN LEVEL 1-3; Start 01/13/17 at 20:00 Zolpidem Tartrate (Ambien) 5 mg HS PRN PO INSOMNIA; Start 01/13/17 at 20:00 Aspirin (Ecotrin) 325 mg DAILY PO Last administered on 01/20/17 09:35; Admin Dose 325 MG; Start 01/14/17 at 09:00 Celecoxib (Celebrex) 100 mg BID PO Last administered on 01/20/17 09:35; Admin Dose 100 MG; Start 01/14/17 at 08:30 Pantoprazole (Protonix Tab) 40 mg DAILY@06 PO Last administered on 01/20/17 05:14; Admin Dose 40 MG; Start 01/15/17 at 06:00 Docusate Sodium/ Ferrous Fumarate (Manda-Sequels) 1 tab BID PO Last administered on 01/19/17 20:16; Admin Dose 1 TAB; Start 01/14/17 at 09:00 Simethicone (Mylicon) 80 mg TID PRN PO DISTENSION/GAS/BLOATING; Start at 20:00 Senna/Docusate Sodium (Senokot-S) 2 tab BID PRN PO CONSTIPATION Last administered on 01/20/17 09:35; Admin Dose 2 TAB; Start 01/13/17 at 20:00 Magnesium Hydroxide (Milk Of Mag) 30 ml HS PRN PO CONSTIPATION; Start at 20:00 Bisacodyl (Dulcolax Supp) 10 mg DAILY PRN [place] CONSTIPATION; Start 01/13/17 at 20:00 Sodium Biphosphate/ Sodium Phosphate (Fleet Enema) 133 ml DAILY PRN [place] CONSTIPATION; Start 01/13/17 at 20:00 Diphenhydramine HCl (Benadryl) 25 mg Q4H PRN IM ITCHING OR RASH Last administered on 01/20/17 12:10; Admin Dose 25 MG; Start 01/13/17 at 20:00 Naloxone HCl (Narcan) 0.2 mg Q2M PRN IV DECREASED REPIRATORY RATE; Start at 20:00 Tramadol HCl (Ultram) 50 mg Q6H PRN PO PAIN Last administered on 01/19/17 13: 43; Admin Dose 50 MG; Start 01/13/17 at 20:00 Ciprofloxacin (Cipro) 500 mg BID@06,18 PO Last administered on 01/20/17 05:14 ; Admin Dose 500 MG; Start 01/14/17 at 18:00 Lactobacillus Acidophilus 1 each 1 each BID PO Last administered on 01/20/17 09:34; Admin Dose 1 EACH; Start 01/14/17 at 09:00 Vancomycin HCl/ Sodium Chloride (Vancocin/NS) 250 ml @ 83.333 mls/ hr Q24H IVPB Last administered on 01/19/17 15:29; Admin Dose 83.333 MLS/HR; Start at 15:00 Thyroid ([place] Thyroid) 120 mg DAILY@06 PO ; Start 01/21/17 at 06:00 SHIRA GALVAN MD Jan 20, 2017 12:55
[2017-01-20] MEDS: VANCOMYCIN 1.5 GM in SOD CHLORIDE 0.9% 250 ML IVPB SCH (15:22)
[2017-01-20] MEDS ORDERED: HEPARIN (100 UNITS/ML) 5 ML SYG CATHETER ONE (18:00)
[2017-01-21] MEDS ORDERED: THYROID 60 MG TAB PO SCH ×2 (06:00)
--- NOTE | 2017-01-21 11:06 | DS ---
Date/Time of Note Date/Time of Note DATE: 01/21/17 TIME: 11:04 Discharge Summary Admission/Discharge Info Admit Date/Time Jan 13, 2017 at 12:18 Discharge Date/Time Jan 20, 2017 at 19:20 Discharge Diagnosis Status post stage I right total knee revision. Patient Condition: Good Hospital Course On the day of admission, the patient underwent stage I right total knee revision with antibiotic spacer. Intraoperative complications: None Postoperative complications: None The patient was given prophylactic antibiotics and anticoagulants. On the day of surgery and first postoperative day patient was started on gait training and was taught usual restrictions following knee replacement/revision On postoperative day 1 dressing was clean dry and intact. No complications were observed. Patient stated up to a week and hospital as there was difficulty coordinating with home health nurse that can provide antibiotic transfusion with vancomycin which is expected to continue for 6 weeks status post surgery. Patient also had consultation with infectious disease will provide oral ciprofloxacin as well with IV vancomycin. On the day of discharge, the wound was clean and healing well; there was no sign of infection. Wound care instructions were discussed with the patient. Discharge Temperature: 97.4 Discharge White Blood Cell Count: 8.7 Discharge Hemoglobin: 8.7 The patient was discharged home with home health. Arrangements were made for visiting nurses and home health/physical therapy. The patient will be seen in office at scheduled postoperative evaluation date given on their preoperative exam. Should patient complain of any problems prior to scheduled postoperative evaluation date, they may call into outpatient clinic to determine if they need to be scheduled at sooner appointment to be seen immediately if needed. Discharge medications: As per medication reconciliation form Diet: Same as preadmission diet. This is Patrick Bellamy PA-C dictating discharge summary for Dr. Smith. Home Meds Reported Medications Phentermine Hcl (Phentermine Hcl) 37.5 Mg Tablet, 37.5 MG PO DAILY, TAB 01/13/17 Cyclobenzaprine Hcl* (Cyclobenzaprine Hcl*) 10 Mg Tablet, 10 MG PO BID Y for MUSCLE SPASMS, #90 TAB 01/13/17 Celecoxib* (Celebrex*) 100 Mg Capsule, 100 MG PO BID, CAP 01/13/17 Thyroid* ([place] Thyroid*) 120 Mg Tablet, 120 MG PO DAILY, TAB 01/13/17 Oxycodone HCl/Acetaminophen (Percocet 10-325 mg Tablet) 1 Each Tablet, 1 EACH PO Q4H WHILE AWAKE Y for PAIN, TAB 01/13/17 Pantoprazole (Protonix) 40 Mg Tabec, 40 MG PO DAILY, TAB 02/28/15 Cholecalciferol* (Vitamin D3*) 2,000 Unit Cap, 2000 UNIT PO DAILY, CAP 02/28/15 Follow-up Plan Follow-up on postoperative appointment provided to you at your preoperative visit. Primary Care Provider Care Physician No Primary PATRICK TIJERINA PA-C Jan 21, 2017 11:06
== END 2017-01-20 19:20 | disposition home health service (06) | DRG 467 ==
LOC: REC 12:18 → EDSTATUS 12:30 → MS1 22:30
PROVIDERS: ADMIT Orthopaedic Surgery; ATTEND Orthopaedic Surgery
PROC: 0SRC0J9 Replacement of Right Knee Joint with Synthetic Substitute, Cemented, Open Approach (ICD-10-PCS; 2017-01-13)
PROC: 0SHC08Z Insertion of Spacer into Right Knee Joint, Open Approach (ICD-10-PCS; 2017-01-13)
PROC: 0SPC0JZ Removal of Synthetic Substitute from Right Knee Joint, Open Approach (ICD-10-PCS; principal; 2017-01-13 15:30)
DX: T84.53XA Infection and inflammatory reaction due to internal right knee prosthesis, initial encounter (principal); D62 Acute posthemorrhagic anemia; T84.032A Mechanical loosening of internal right knee prosthetic joint, initial encounter; E03.9 Hypothyroidism, unspecified; K21.9 Gastro-esophageal reflux disease without esophagitis; Z86.718 Personal history of other venous thrombosis and embolism
CPT/HCPCS: 73560; 80048; 80053; 80202; 85025; 85610; 85651; 85730; 86140; 86850; 86900; 86901; 87070; 87075; 87102; 87116; 88300; 88304; 93971; 97110; 97116; 97162; 97166; 97530; J0131; J0171; J0690; J0735; J1100; J1170; J1200; J1642; J1885; J2370; J2405; J2795; J2997; J3010; J3370; J7030; J7040; J7050

== ENCOUNTER → 2017-01-30 | Outpatient (CLI) | payer BC ==
[~2017-01-30] MED LIST changes: +CELE100C PO; -CELE200C PO; +CYCL-319 PO; -GABA300C PO; +OXYC-209 PO; -OXYC-281 PO; +PHEN37.53 PO; -RIVA10TA PO; +THYR120T PO
--- NOTE | 2017-01-30 15:08 | PN ---
Date/Time of Note Date/Time of Note DATE: 01/30/17 TIME: 15:01 Outpatient Progress Note Chief Complaint Two-week postop right total knee revision with antibiotic spacer placement. HPI 66-year-old female presents today for 2 week postoperative appointment status post right total knee revision surgery with antibiotic spacer placement performed on 01/13/2017. Patient has been having pain along the medial side of the knee stopping about two thirds length to the medial tibia/fibular region. Pain that patient has complaints of is not similar to pain prior to surgery. She states that pain prior to surgery has subsided. Patient also expresses issues as she has not heard from infectious disease physician who has placed her on vancomycin transfusion as well as ciprofloxacin 500 mg twice a day. She is yet to have follow-ups or repeat labs in regards to ESR and CRP. She has followed up with her driver wheelchair however, who states that she has very low iron levels and is currently taking supplemental iron to increase. Patient denies any chest pain/tightness or calf pain. Dada filter remains in place. Patient is up and weightbearing with assistance using front wheeled walker. Denies any falls or acute injury. Denies any complications to the wound. Presents today for postoperative visit. Review of Systems Const: No Fever, no chills, no Fatigue, normal appetite, no diaphoresis. Resp: No SOB, no wheezing, no chest pain. CV: No chest pain, no palpitaions, no SANTANA. Physical Exam Blood pressure is 147/77, temperature is 98, pulse is 86, respiratory rate is 12, height is 5 feet, weight is 181 pounds General Appearance: well-developed, well-nourished, in no acute distress. Right knee: Surgical wound is clean dry and intact with no signs of infection. No erythema. Tenderness to palpation along the medial compartment. Pain seems to be ligamentous which may be secondary to manipulation that was necessary intraoperatively. About 10 lag from full extension. Patient is able to flex up to 100 today. Assisted ambulation using front wheeled walker but patient is ambulating with minimal pain complaints in office today. Negative Homans sign. Imaging: X-ray to the right knee performed on 01/30/2017 showing prosthesis intact but there is lucency from region of tibia to antibiotic cement placement which could create some shifting mildly. Prosthesis showing no signs of complications postoperatively. No changes in placement when compared to postoperative x-rays on the day of surgery. Allergies Coded Allergies: hydrocodone (Verified Allergy, Severe, RASH, 01/13/17) codeine (Verified Allergy, Intermediate, RASH, 01/13/17) Family Hx Patient History: Cardiac disorder 33 FATHER FHx: lung cancer 32 MOTHER Assessment/Plan Problems: (1) Status post revision of total replacement of right knee * Lengthy discussion had with patient today. Patient will be following up with Dr. Whitten to take over infectious disease management. She will be scheduling appointment next week. * Patient may continue with pain medication ([place]) as needed for severe pain. Continue with Celebrex 100 mg twice daily for the next 2 weeks. Patient may also continue with gabapentin 100 mg twice daily for the next 2 weeks. Patient is up and moving so it was recommended that she can discontinue aspirin at this time. * Prescription for outpatient physical therapy provided today. At home therapy and exercises discussed in detail with focus on improving range of motion to the knee status post surgery. * Prescription for labs in regards to ESR and CRP to be added on to weekly labs given for patient today so [facility] nurse draw his labs these 2 findings can be added on to her standard sheet. * Medial pain that patient is experiencing seems to be ligamentous based off of examination. No increased laxity in valgus stress. Reassurance was provided for patient and patient's . * Patient will follow-up 6 weeks status post surgery date but she was made aware that should there be any issue she may follow-up at an earlier time if there is any complication and she states understanding and compliance. Dr. Smith was present for examination today. Medications Home Meds Reported Medications Phentermine Hcl (Phentermine Hcl) 37.5 Mg Tablet, 37.5 MG PO DAILY, TAB 01/13/17 Cyclobenzaprine Hcl* (Cyclobenzaprine Hcl*) 10 Mg Tablet, 10 MG PO BID Y for MUSCLE SPASMS, #90 TAB 01/13/17 Celecoxib* (Celebrex*) 100 Mg Capsule, 100 MG PO BID, CAP 01/13/17 Thyroid* ([place] Thyroid*) 120 Mg Tablet, 120 MG PO DAILY, TAB 01/13/17 Oxycodone HCl/Acetaminophen (Percocet 10-325 mg Tablet) 1 Each Tablet, 1 EACH PO Q4H WHILE AWAKE Y for PAIN, TAB 11/21/17 Pantoprazole (Protonix) 40 Mg Tabec, 40 MG PO DAILY, TAB 02/28/15 Cholecalciferol* (Vitamin D3*) 2,000 Unit Cap, 2000 UNIT PO DAILY, CAP 02/28/15 PATRICK TIJERINA PA-C Jan 30, 2017 15:08
--- NOTE | 2017-01-30 15:11 | RADRPT ---
AMENDMENT: 01/30/2017 3:44:52 PM Anthony Jurado M.d A call report was made and the findings discussed with Vitaliy Juan at 01/30/2017 3:42:24 PM. The lucency is actually postsurgical and expected for the procedure performed on the patient. PROCEDURE: RIGHT knee x-ray CLINICAL INDICATION: Knee pain TECHNIQUE: AP, lateralviews of the knee were obtained. COMPARISON: 07/01/16 FINDINGS: There is normal mineralization. The patient is status post right knee replacement. There is a lucency noted in the proximal tibia, suspicious for a possible fracture. There is no significant soft tissue swelling. RPTAT: AA IMPRESSION: Status post right knee replacement. Lucency in the proximal tibia, suspicious for a possible fracture. Further evaluation with CT is recommended. .Anthony Jurado MD, Date Time Electronically viewed and signed by .Anthony Jurado MD, on 01/30/2017 15:44 .S/
== END | disposition home or self-care (01) ==
LOC: HKI 13:28
PROVIDERS: ATTEND Orthopaedic Surgery
DX: Z09 Encounter for follow-up examination after completed treatment for conditions other than malignant neoplasm (principal); Z96.651 Presence of right artificial knee joint

== ENCOUNTER → 2017-02-27 | Outpatient (CLI) | END | disposition home or self-care (01) ==

== ENCOUNTER → 2017-03-27 | Outpatient (CLI) | END | disposition home or self-care (01) ==

== ENCOUNTER → 2017-04-03 | Outpatient (CLI) | END | disposition home or self-care (01) ==